=== PATIENT | female | born 1970 | race Caucasian/White ===

== ENCOUNTER 2023-11-01 19:28 | Inpatient (IN) | payer OTHER, SELFPAY ==
[2023-11-01 19:32] VITALS: BP 174/94; PULSE 91; RESP 20; TEMP 37.2; O2SAT 99; BMI 38.6
--- NOTE | 2023-11-01 19:32 | ED_ITS ---
HPI - Psych General Chief Complaint: Psychiatric Symptoms Stated Complaint: SI Time Seen by Provider: 11/01/23 19:45 Source: patient Mode of arrival: ambulatory Limitations: no limitations History of Present Illness ED Provider: Keira Coleman NP HPI Narrative: Patient is a 53-year-old female who presents to the emergency department with [id number] present. Patient endorsing suicidal ideations with a plan to overdose on medication that she has at home. She states that she has not taken her medication for depression/anxiety ?in a few months? she felt that they were not helping her. She was previously being followed by [facility], states she has not seen them since July of 2023 reporting ?I kind of vague up on them?. She reports lot of social stressors involving her housing instability, her parents have recently , and the house is being sold off by the bank, and as of later this week she is going to be homeless. She states that she is currently unemployed, and reports multiple reasons that she is unable to obtain a job, her unemployment has since run out and she currently only is receiving money for food stamps. She denies homicidal ideation, recreational drug usage, alcohol usage. She reports a history of chronic lower back pain, nonradiating to the extremities, no bladder bowel dysfunction, no saddle paresthesias, no symptoms, no fevers or chills. She does admit to a remote history of hypertension, states a few years ago she was taking ?a low-dose blood pressure pill? with stop taking this, and she has not seen primary care doctor since 2019. Related Data Home Medications ?Medication ?Instructions ?Recorded ?Confirmed bupropion HCl 300 mg 24 hr tablet, 300 mg PO QAM 11/01/23 11/01/23 extended release clonidine HCl 0.1 mg tablet 0.1 mg PO BID PRN anxiety 11/01/23 11/01/23 fluvoxamine 50 mg tablet 50 mg PO BEDTIME 11/01/23 11/01/23 quetiapine 25 mg tablet 25 mg PO BEDTIME 11/01/23 11/01/23 Allergies Allergy/AdvReac Type Severity Reaction Status Date / Time ibuprofen [From Advil] AdvReac Hives Verified 11/01/23 19:36 Review of Systems 2 Review of Systems: Yes all other systems are reviewed and are negative PMFSH Past Medical History Attestation statement: The following information was validated with the patient. Source: old records reviewed Social History Social History Advance Directives: No Advance Directives Information Provided: No Do you have a plan to hurt others: Specific Physical Exam 2 Vital Signs: Vital Signs: Last Vital Signs Temp 97.4 F 11/02/23 11:51 Pulse 66 11/02/23 11:51 Resp 15 11/02/23 11:51 BP 217/82 H 11/02/23 11:58 Pulse Ox 100 11/02/23 11:51 O2 Del Method Room Air 11/02/23 11:51 BMI result Body Mass Index 38.6 Appearance: Alert.?Oriented to person, place and time. No acute distress.?Normal affect. Eyes: Pupils equal, round and reactive to light.? ENT: Pharynx normal.?? Neck: Normal inspection.? Neck supple.?? CVS: Heart sounds normal. Normal heart rate and rhythm.? Pulses normal.?? Respiratory: No respiratory distress.? Lung sounds clear to auscultation bilaterally?? Abdomen: Soft and non-tender. Normoactive bowel sounds. No pulsatile mass.?? Skin: Skin warm and dry.? Normal skin color.? ?? Extremities: No lower extremity edema.? No calf ttp? Back: diffuse mild paraspinal muscular tenderness from lumbar region to coccyx bilaterally. No CVA tenderness. No midline spinal tenderness, step-off's, or deformity. Full ROM intact in bilateral lower extremities. Straight leg test negative on right; Straight leg test negative on left. No rashes, lesions, areas of induration or fluctuance, or signs of infection noted., Neuro: Moves all extremities spontaneously. Sensation intact bilaterally. CN II- XII intact. No focal neuro deficits. Ambulates with normal steady gait. Course Course Course Narrative: This is a Rapid Medical Examination (RME) performed by Marisol Huynh PA-C in triage. Full HPI, ROS, assessment and treatment plan per primary provider in the Main ED. 53 yo female hx of anxiety, depression, presents to the ED today with sister in law for eval of suicidal ideation. reports plan to OD and has access to medications at home. per med history, patient takes buproprion, clonidine, and quetiapine. sister in law states patient's father a year ago. they are in the process of selling his house, which patient lives in, and the sale is closing this week. once this is sold, she will have nowhere to live. sister in law states her and her were outside the ouse earlier today and upon entry into the house, patient threatened to kill herself 3 times. PD was called to scene. patient does not currently have a job/money. patient reports physical concerns of chronic back pain. atraumatic. Plan: medical clearance, care team eval Medications Administered Generic Name Dose Route Start Last Admin Trade Name Freq PRN Reason Stop Dose Admin Bupropion HCl 300 mg 11/02/23 08:30 11/02/23 09:03 Bupropion Hcl Xl 300 Mg Tab.Er.24h PO 300 mg DAILY ALTHEA Administration Clonidine HCl 0.1 mg 11/02/23 08:16 11/02/23 11:58 Clonidine Hcl 0.1 Mg Tablet PO 0.1 mg BID PRN Administration anxiety Protocol Discontinued Medications Generic Name Dose Route Start Last Admin Trade Name Freq PRN Reason Stop Dose Admin Acetaminophen 975 mg 11/02/23 06:20 11/02/23 06:30 Acetaminophen 325 Mg Tablet PO 11/02/23 06:21 975 mg ONCE ONE Administration Al Hydroxide/Mg Hydroxide 30 ml 11/02/23 00:42 11/02/23 00:59 Magnesium Hydrox/Alum Hydrox 30 Ml Oral.Susp PO 11/02/23 00:43 30 ml ONCE ONE Administration Calcium Carbonate 1,500 mg 11/02/23 10:19 11/02/23 10:26 Calcium Carbonate 750 Mg Tab.Chew PO 11/02/23 10:20 1,500 mg ONCE ONE Administration Diphenhydramine HCl 50 mg 11/02/23 00:35 11/02/23 00:59 Diphenhydramine Hcl 25 Mg Capsule PO 11/02/23 00:36 50 mg ONCE ONE Administration Medical Decision Making Medical Decision Making MDM Narrative: Patient is a 53-year-old female with past medical history of depression, anxiety, hypertension, chronic lower back pain presenting to emergency department for evaluation of suicidal ideations as per HPI. She is endorsing chronic lower back pain for which she typically takes acetaminophen/ibuprofen at home, no acute changes to this pain, has no focal neurological deficits, or exam findings concerning for cauda equina syndrome. Serum labs were obtained, CBC is without leukocytosis anemia or thrombocytopenia. No electrolyte derangement. No RONI. Urinalysis without evidence of infection. Toxicology testing is negative. At this time feel that she is cleared for evaluation by care team and determination as to whether inpatient psychiatric services are required. 11/02/2023, 06:52 hours, Dr. Gandhi's note Physician observation continued: The patient has been in the emergency department for 11 hours and 24 minutes. She presented with suicidal ideation. Patient has stressful social situation, her father or in her house is being sold and she is going to be homeless. Patient has stopped taking medications 08/2023 and he has been combative, not herself according to her [id number]. Patient made multiple suicidal statements to her [id number]-sfg. There were no reported incidents on the patient by the overnight staff. The patient has been evaluated by the care team and is in in-patient bed search. Patient will remain in the emergency department Behavioral Health Unit until disposition can be determined or until patient's symptoms improve over time. 13:07 End physician observation on 11/02/2023 at 13:07 hours: Observation care revealed the the patient [does or does not] meet medical necessity for hospitalization. Exam at time of disposition revealed the patient was awake, alert , oriented to person place, was not in any distress. ? Final disposition discussed with the patient [and the patient's] who verbalized understanding and agreement. Patient started observation time on (date) (time) Patient completed observation care on (date) (time) Total time spent in observation care was [X] hours and [X] minutes. [email or web address] Differential Diagnosis Differential Diagnoses: The differential diagnosis associated with the presentation includes (Suicidal ideations, depression, anxiety, lumbago) Admission/Observation Consideration of admission/observation: Escalation of care including admission/observation considered (See narrative above) Consult Healthcare Provider Management of the patient was discussed with: Behavioral Health Provider Patient was evaluated by care team, placed on a section 12 for inpatient bed search. No respiratory distress. Speaking clear full sentences. Calm and cooperative. Lab Data MDM Lab Attestation statement: I reviewed the patient's lab results. (See narrative above) 11/01/23 20:11 11/01/23 20:11 Labs: Lab Results 06/11/24 06/11/24 06/11/24 Range/Units 20:10 20:11 20:12 WBC 10.2 (4.8-10.8) X10*3/uL RBC 4.57 (4.20-5.50) X10*6/uL Hgb 12.3 (12.0-16.0) g/dl Hct 38.1 (37.0-47.0) % MCV 83.4 (80.0-98.0) fL MCH 26.9 L (27.0-33.0) pg MCHC 32.3 (31.0-35.0) g/dl RDW 14.6 (11.0-16.0) % Plt Count 341 (160-400) X10*3/uL MPV 10.0 (9.4-12.3) fL Immature Gran % (Auto) 0.3 (0.0-0.4) % Neut % (Auto) 71.9 (45-73) % Lymph % (Auto) 16.0 L (20-40) % [place] % (Auto) 7.6 (2-11) % Eos % (Auto) 3.4 (0-4) % Baso % (Auto) 0.8 (0-2) % Lymph # (Auto) 1.6 (1.2-4.9) X10*3/uL [place] # (Auto) 0.8 (0.1-1.2) X10*3/uL Eos # (Auto) 0.4 (0.0-0.4) X10*3/uL Baso # (Auto) 0.1 (0.0-0.2) X10*3/uL Abs Immat Gran (auto) 0.03 (0.00-0.03) X10*3/uL Absolute Neuts (auto) 7.3 (2.0-8.3) x10*3/uL Absolute Nucleated RBC 0.000 (0.0-0.012) X10*3/uL Nucleated RBC % (auto) 0.0 (0.0-0.2) /100WBC Sodium 143 (135-145) mmol/L Potassium 3.4 (3.3-5.1) mmol/L Chloride 105 (96-108) mmol/L Carbon Dioxide 27 (22-29) mmol/L Anion Gap 14 (12-20) BUN 8 L (9-16) mg/dL Creatinine 0.64 (0.5-1.4) mg/dL Estim Creat Clear Calc 120.9 Estimated GFR > 60 Random Glucose 97 (60-115) mg/dL Calcium 9.5 (8.4-10.2) mg/dL Magnesium 2.2 (1.6-2.6) mg/dL Total Bilirubin 0.3 (0.0-1.0) mg/dL AST 16 (5-31) U/L ALT 11 (0-31) U/L Alkaline Phosphatase 72 (39-117) U/L Total Protein 7.9 (6.5-8.0) g/dL Albumin 4.6 (3.5-5.0) g/dL Lipase 26 (8-78) U/L Urine Color Yellow Urine Appearance Clear Urine pH 7.0 (5.0-9.0) Ur Specific [place] <= 1.005 (1.005-1.025) Urine Protein Negative (Neg-Trace) mg/dL Urine Glucose (UA) Negative (Negative) mg/dL Urine Ketones Negative (Negative) mg/dL Urine Blood Trace H (Negative) Urine Nitrite Negative (Negative) Ur Leukocyte Esterase Negative (Negative) Urine RBC 0-2 (0-2) /HPF Urine WBC 0-5 (0-5) /HPF Ur Squamous Epith Cells 0-2 (0-2) /HPF Urine Bacteria None Seen (None Seen) Hyaline Casts 0-2 (0-2) /LPF Salicylates < 5.0 L (15-30) mg/dL Urine Opiates Screen Not Detected (Not Detect) Ur Buprenorphine Scrn Not Detected (Not Detect) ng/mL Ur Oxycodone Screen Not Detected (Not Detect) ng/mL Urine Methadone Screen Not Detected (Not Detect) ng/mL Urine Fentanyl Screen Not Detected (Not Detect) Ur Barbiturates Screen Not Detected (Not Detect) Ur Phencyclidine Scrn Not Detected (Not Detect) Ur Amphetamines Screen Not Detected (Not Detect) U Benzodiazepines Scrn Not Detected (Not Detect) Urine Cocaine Screen Not Detected (Not Detect) U Marijuana (THC) Screen Not Detected (Not Detect) Ethyl Alcohol < 10 mg/dL Independent Historian Clinical information obtained from an independent historian. History obtained from or confirmed by: Other ([id number]) Discharge Plan Discharge Clinical Impression: Suicidal ideation Patient Disposition: Still a Patient Prescriptions: No Action quetiapine 25 mg tablet 25 mg PO BEDTIME clonidine HCl 0.1 mg tablet 0.1 mg PO BID PRN (Reason: anxiety) fluvoxamine 50 mg tablet 50 mg PO BEDTIME bupropion HCl 300 mg tablet extended release 24 hr 300 mg PO QAM Interventions: Angelina-Suicide Risk Severity Scale Last Done: 11/02/23 02:38 Print Language: Slovenian
[2023-11-01 20:18] LABS: MANUAL DIFF FLAG NO
[2023-11-01 20:19] LABS: Basophils Absolute Auto 0.1 X10*3/uL (0.0-0.2); Basophils Percent Auto 0.8 % (0-2); Eosinophils Absolute Auto 0.4 X10*3/uL (0.0-0.4); Eosinophils Percent Auto 3.4 % (0-4); Hematocrit 38.1 % (37.0-47.0); Hemoglobin 12.3 g/dl (12.0-16.0); Imm Gran Abs Auto 0.03 X10*3/uL (0.00-0.03); Imm Gran Pct Auto 0.3 % (0.0-0.4); Lymphocytes Absolute Auto 1.6 X10*3/uL (1.2-4.9); Mean Corpuscular HGB Conc 32.3 g/dl (31.0-35.0); Mean Corpuscular Hemoglobin 26.9 pg (27.0-33.0); Mean Corpuscular Volume 83.4 fL (80.0-98.0); Monocytes Absolute Auto 0.8 X10*3/uL (0.1-1.2); Monocytes Percent Auto 7.6 % (2-11); Neutrophils Absolute Auto 7.3 x10*3/uL (2.0-8.3); Neutrophils Percent Auto 71.9 % (45-73); Platelet Count 341 X10*3/uL (160-400); Red Blood Count 4.57 X10*6/uL (4.20-5.50); Red Cell Distribution Width 14.6 % (11.0-16.0); White Blood Count 10.2 X10*3/uL (4.8-10.8)
[2023-11-01 20:22] LABS: Appearance Urine Clear; Color Urine Yellow; Glucose Urine UA Negative (Negative); Leukocyte Esterase Urine Negative (Negative); Nitrite Urine Negative (Negative); Specific Gravity - Urine <= 1.005 (1.005-1.025); UMIC TRIGGER UACC YES; Urine Blood Trace (Negative); Urine Ketones Negative (Negative); Urine Protein Negative (Neg-Trace)
[2023-11-01 20:27] LABS: Bacteria Urine None Seen (None Seen); Hyaline Casts Urine 0-2 /LPF (0-2); RBC Urine 0-2 /HPF (0-2); Squamous Epithelial Cell Urine 0-2 /HPF (0-2); WBC Urine 0-5 /HPF (0-5)
[2023-11-01 20:30] LABS: Amphetamine Screen Urine Not Detected (Not Detect); Barbiturates, Urine Not Detected (Not Detect); Benzodiazepines Screen Urine Not Detected (Not Detect); Buprenorphine Scr Not Detected (Not Detect); Cannabinoid Screen Urine Not Detected (Not Detect); Cocaine Screen Urine Not Detected (Not Detect); Fentanyl, urine Not Detected (Not Detect); Methadone Screen, Urine Not Detected (Not Detect); Opiate Screen Urine Not Detected (Not Detect); Oxycodone Screen Urine Not Detected (Not Detect); Phencyclidine Screen Urine Not Detected (Not Detect)
[2023-11-01 20:34] LABS: Ethanol < 10 mg/dL
[2023-11-01 20:41] LABS: Salicylate < 5.0 mg/dL (15-30)
[2023-11-01 21:01] LABS: Alanine Aminotransferase 11 U/L (0-31); Albumin Level 4.6 g/dL (3.5-5.0); Alkaline Phosphatase 72 U/L (39-117); Anion Gap 14 (12-20); Aspartate Amino Transferase 16 U/L (5-31); Bilirubin Total 0.3 mg/dL (0.0-1.0); Blood Urea Nitrogen 8 mg/dL (9-16); Calcium 9.5 mg/dL (8.4-10.2); Carbon Dioxide 27 mmol/L (22-29); Chloride 105 mmol/L (96-108); Creatinine Clr Calc Pharmacy 120.9; Estimated Glomerular Filt Rate > 60; Glucose Random 97 mg/dL (60-115); Lipase 26 U/L (8-78); Magnesium 2.2 mg/dL (1.6-2.6); Potassium 3.4 mmol/L (3.3-5.1); Sodium 143 mmol/L (135-145); Total Protein 7.9 g/dL (6.5-8.0)
[2023-11-02] MEDS: diphenhydrAMINE HCL 25 MG CAPSULE 50 MG PO (00:59)
[2023-11-02] MEDS: Magnesium Hydrox/Alum Hydrox 30 ML ORAL.SUSP PO ×2 (00:59→20:07)
[2023-11-02 06:27] VITALS: BP 195/93; PULSE 65; TEMP 36.2; O2SAT 98
[2023-11-02] MEDS: Acetaminophen 325 MG TABLET 975 MG PO (06:30)
--- NOTE | 2023-11-02 07:46 | ECG_ITS ---
Test Reason : PROLONG QT Blood Pressure : / mmHG Vent. Rate : 061 BPM Atrial Rate : 061 BPM P-R Int : 138 ms QRS Dur : 098 ms QT Int : 450 ms P-R-T Axes : 021 -05 024 degrees QTc Int : 453 ms Normal sinus rhythm Minimal voltage criteria for LVH, may be normal variant ( R in aVL ) Borderline ECG No previous ECGs available Referred By: Abhijit Gandhi Electronically Signed By:DOMINIQUE WARREN
[2023-11-02] MEDS: buPROPion HCl XL 300 MG TAB.ER.24H PO (09:03)
[2023-11-02] MEDS: Calcium Carbonate 750 MG TAB.CHEW 1500 MG PO (10:26)
[2023-11-02 11:51] VITALS: BP 217/82; PULSE 66; RESP 15; TEMP 36.3; O2SAT 100
[2023-11-02 11:58] VITALS: BP 217/82
[2023-11-02] MEDS: cloNIDine HCL 0.1 MG TABLET PO (11:58)
--- NOTE | 2023-11-02 12:26 | PC.NURSE ---
patient medicated w/ prn medication, watching tv in common area at this time offering no complaints
--- NOTE | 2023-11-02 13:21 | PHA.MEDREC ---
Pharmacy Consult ? Medication Reconciliation Pharmacy has completed the medication reconciliation. Reviewed med rec done by nursing
[2023-11-02 13:44] VITALS: BP 134/61
[2023-11-02 14:20] VITALS: BP 186/86; PULSE 86; RESP 16; TEMP 36.8; O2SAT 99; BMI 38.6
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
[2023-11-02 20:00] VITALS: BP 196/96; TEMP 36.5; O2SAT 99
[2023-11-02] MEDS: fluvoxaMINE Maleate 50 MG TABLET PO (20:03)
[2023-11-02] MEDS: QUEtiapine Fumarate 25 MG TABLET PO (20:03)
[2023-11-02] MEDS: Acetaminophen 325 MG TABLET 650 MG PO (20:11)
[2023-11-03 07:00] VITALS: BMI 38.7
[2023-11-03 08:00] VITALS: BP 171/82; PULSE 72; RESP 16; TEMP 36.4; O2SAT 97
[2023-11-03 08:30] LABS: Estimated Average Glucose 105 mg/dL; Hemoglobin A1c % 5.3 % (<6.0)
[2023-11-03 08:48] LABS: Cholesterol 216 mg/dL (<200); HDL Cholesterol 59 mg/dL (>40); LDL Cholesterol Calculated 138 mg/dL (<100); Magnesium 2.1 mg/dL (1.6-2.6); Triglycerides 96 mg/dL (<150)
[2023-11-03 09:03] LABS: Free T4 (Free Thyroxine) 0.99 ng/dL (0.71-1.85)
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
[2023-11-03 09:16] LABS: Folate 8.6 ng/mL (> or = 4.0); Vitamin B12 474 pg/mL (200-900)
[2023-11-03] MEDS: buPROPion HCl XL 300 MG TAB.ER.24H PO (09:38)
[2023-11-03] MEDS: hydrOXYzine HCL 25 MG TABLET PO ×2 (09:38→20:57)
[2023-11-03] MEDS: lisinopriL 5 MG TABLET PO (15:28)
[2023-11-03] MEDS: Lidocaine 4 % Patch ADH..PATCH 1 PATCH TRANSDERMA (15:30)
[2023-11-03 20:00] VITALS: BP 186/73; PULSE 80; RESP 16; TEMP 36.3; O2SAT 99
[2023-11-03] MEDS: fluvoxaMINE Maleate 50 MG TABLET PO (20:57)
[2023-11-03] MEDS: Acetaminophen 325 MG TABLET 650 MG PO (21:00)
[2023-11-04 03:16] VITALS: BP 176/82
[2023-11-04] MEDS: cloNIDine HCL 0.1 MG TABLET PO ×2 (03:16→20:50)
[2023-11-04 08:00] VITALS: BP 119/68; PULSE 71; RESP 16; TEMP 36.6; O2SAT 98
[2023-11-04] MEDS: buPROPion HCl XL 300 MG TAB.ER.24H PO (09:00)
[2023-11-04] MEDS: lisinopriL 5 MG TABLET PO (09:40)
[2023-11-04] MEDS: Acetaminophen 325 MG TABLET 650 MG PO ×2 (09:41→20:53)
[2023-11-04] MEDS: hydrOXYzine HCL 25 MG TABLET PO ×2 (09:41→20:50)
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
[2023-11-04 13:30] VITALS: BP 145/79; PULSE 78; RESP 16; O2SAT 99
[2023-11-04 20:00] VITALS: BP 177/78; PULSE 73; RESP 18; TEMP 36.6; O2SAT 96
[2023-11-04 20:50] VITALS: BP 177/78
[2023-11-04] MEDS: traZODone HCL 50 MG TABLET PO (20:50)
[2023-11-04] MEDS: fluvoxaMINE Maleate 50 MG TABLET PO (20:50)
[2023-11-04] MEDS: Lidocaine 4 % Patch ADH..PATCH 1 PATCH TRANSDERMA (22:45)
[2023-11-05 08:00] VITALS: BP 108/58; PULSE 64; RESP 18; TEMP 36.9; O2SAT 95
[2023-11-05 08:09] VITALS: BP 108/58
[2023-11-05] MEDS: buPROPion HCl XL 300 MG TAB.ER.24H PO (08:09)
[2023-11-05] MEDS: lisinopriL 5 MG TABLET PO (08:09)
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
[2023-11-05] MEDS: Acetaminophen 325 MG TABLET 650 MG PO ×2 (10:58→22:45)
[2023-11-05 13:30] VITALS: BP 101/58; PULSE 68
[2023-11-05 20:00] VITALS: BP 144/76; PULSE 82; RESP 18; TEMP 36.6; O2SAT 99
[2023-11-05] MEDS: hydrOXYzine HCL 25 MG TABLET PO (20:49)
[2023-11-05] MEDS: cloNIDine HCL 0.1 MG TABLET PO (20:49)
[2023-11-05] MEDS: fluvoxaMINE Maleate 50 MG TABLET PO (20:50)
[2023-11-05] MEDS: traZODone HCL 50 MG TABLET PO (20:50)
[2023-11-05] MEDS: Lidocaine 4 % Patch ADH..PATCH 1 PATCH TRANSDERMA (22:46)
[2023-11-06 08:00] VITALS: BP 114/59; PULSE 74; RESP 16; TEMP 36.7; O2SAT 95
[2023-11-06] MEDS: buPROPion HCl XL 300 MG TAB.ER.24H PO (08:32)
[2023-11-06] MEDS: lisinopriL 5 MG TABLET PO (08:32)
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
[2023-11-06] MEDS: Dextroamphetamine/Amphetamine XR 10 MG CAP.ER.24H PO (10:54)
[2023-11-06 13:30] VITALS: BP 137/61; PULSE 64; RESP 16; TEMP 36.4; O2SAT 97
[2023-11-06 20:00] VITALS: BP 161/76; PULSE 70; TEMP 36.4; O2SAT 100
[2023-11-06] MEDS: traZODone HCL 50 MG TABLET PO (21:23)
[2023-11-06] MEDS: fluvoxaMINE Maleate 50 MG TABLET PO (21:24)
[2023-11-06] MEDS: Acetaminophen 325 MG TABLET 650 MG PO (21:27)
[2023-11-07 08:00] VITALS: BP 132/84; PULSE 80; RESP 16; TEMP 36.5; O2SAT 97
[2023-11-07] MEDS: hydrOXYzine HCL 25 MG TABLET PO (08:54)
[2023-11-07] MEDS: Dextroamphetamine/Amphetamine XR 10 MG CAP.ER.24H 20 MG PO (08:54)
[2023-11-07] MEDS: cloNIDine HCL 0.1 MG TABLET PO (08:54)
[2023-11-07] MEDS: buPROPion HCl XL 300 MG TAB.ER.24H PO (08:54)
[2023-11-07] MEDS: lisinopriL 5 MG TABLET PO (08:54)
--- NOTE | 2023-11-07 09:51 | P.PNPSI_ITS ---
Subjective Subjective Date of Service: 11/07/23 Reason For Visit: Depression, si Interim History: met with patient; discussed with team still depressed with intermittent SI; feels strong need to talk about hx of trauma in order to process and will sometimes give unrelated answers to questions asked, talking about past events. Regarding Adderall, maybe it's helped her focus more but she does not really think so Mental Status Exam Mental Status Exam Narrative: Pt is alert and oriented; behavior is cooperative, friendly and calm; patient is not in distress; dressed in casual attire, well groomed; mood is described as okay and affect congruent, still a little down; eye contact appropriate; Speech is verbose; normal rate, volume and prosody; not pressured; no psychomotor retardation present; thought process is goal directed but concrete; also quite circumstantial; Thought content is on psychosocial stressors, homelessness; otherwise pertinent to relevant topics and without any delusional content, paranoid ideations or grandiosity; SI in context of homelessness; no HI; There is no evidence of perceptual disturbance. Patients insight and judgment improving Diagnostics Vital Signs (24Hr): Vital Signs - 24 hr 11/06/23 13:30 11/06/23 20:00 11/07/23 08:00 Temperature 97.6 F 97.5 F 97.7 F Pulse Rate 64 70 80 Respiratory Rate 16 16 Blood Pressure 137/61 161/76 H 132/84 Pulse Oximetry 97 100 97 Oxygen Delivery Method Room Air Room Air Room Air BMI result Body Mass Index 38.7 Labs 11/01/23 20:11 11/01/23 20:11 Medications Medications Current Medications Acetaminophen (Acetaminophen 325 Mg Tablet) 650 mg PO Q6H PRN PRN Reason: Headache/Pain Mild Scale (1-3) Last Admin: 11/06/23 21:27 Dose: 650 mg Al Hydroxide/Mg Hydroxide (Magnesium Hydrox/Alum Hydrox 30 Ml Oral.Susp) 30 ml PO Q6H PRN PRN Reason: Heartburn/Nausea Last Admin: 11/02/23 20:07 Dose: 30 ml Amphetamine/Dextroamphetamine (Dextroamphetamine/Amphetamine Xr 10 Mg Cap.Er.24h) 20 mg PO DAILY ALTHEA Last Admin: 11/07/23 08:54 Dose: 20 mg Bupropion HCl (Bupropion Hcl Xl 300 Mg Tab.Er.24h) 300 mg PO DAILY ALTHEA Last Admin: 11/07/23 08:54 Dose: 300 mg Clonidine HCl (Clonidine Hcl 0.1 Mg Tablet) 0.1 mg PO BID PRN; Protocol PRN Reason: anxiety Last Admin: 11/07/23 08:54 Dose: 0.1 mg Fluvoxamine Maleate (Fluvoxamine Maleate 50 Mg Tablet) 50 mg PO BEDTIME [facility] Last Admin: 11/06/23 21:24 Dose: 50 mg Hydroxyzine HCl (Hydroxyzine Hcl 25 Mg Tablet) 25 mg PO Q6H PRN PRN Reason: Anxiety Last Admin: 11/07/23 08:54 Dose: 25 mg Lidocaine (Lidocaine 4 % Patch Adh..Patch) 1 patch TRANSDERMA DAILY PRN; Protocol PRN Reason: lower back pain Last Admin: 11/05/23 22:46 Dose: 1 patch Lisinopril (Lisinopril 5 Mg Tablet) 5 mg PO DAILY [facility]; Protocol Last Admin: 11/07/23 08:54 Dose: 5 mg Magnesium Hydroxide (Milk Of Magnesia 30 Ml Oral.Susp) 30 ml PO DAILY PRN PRN Reason: Constipation Patient Own (Probiotic) 1 each PO DAILY [facility] Last Admin: 11/06/23 08:31 Dose: 1 each Tetrahydrozoline HCl (Tetrahydrozoline Hcl 0.05% Oph 15 Ml Drpbtl) 1 drop EYE- BOTH QID PRN PRN Reason: dry eyes Trazodone HCl (Trazodone Hcl 50 Mg Tablet) 50 mg PO BEDTIME MRX1 PRN PRN Reason: Insomnia Trazodone HCl (Trazodone Hcl 50 Mg Tablet) 50 mg PO BEDTIME [facility] Last Admin: 11/06/23 21:23 Dose: 50 mg Allergies Allergies Allergy/AdvReac Type Severity Reaction Status Date / Time ibuprofen [From Advil] AdvReac Hives Verified 11/01/23 19:36 Assessment & Plan Assessment & Plan (1) MDD (major depressive disorder), recurrent severe, without psychosis: Status: Acute Code(s): F33.2 - Major depressive disorder, recurrent severe without psychotic features (2) Hoarding behavior: Status: Acute Code(s): F42.3 - Hoarding disorder (3) Compulsive shopping: Status: Acute Code(s): F42.8 - Other obsessive-compulsive disorder Plan pt is a 53 yo female with hx of hypertension, depression, shopping addiction, hoarding who presents for depression and SI with plan to overdose on medications in face of becoming homeless. Patient reports that she has had intermittent bouts of depression throughout most of her life. Patient reports that she was 1st started on medications about a year ago but only took them for several months and though they helped with her shopping addiction, did not do that much for depression. She has been off them since July. Her depression has worsened over the past several weeks as she will soon become homeless as her father's estate was pilfered by patient's stepmother. This past week patient started feeling hopeless developed suicidal ideation; the last few days she started have a plan to overdose. Patient actually got her pills out but her brother and [id number] came over and when she told him of her SI, they called crisis. Patient denies history of manic behaviors or episodes; denies AVH, denies alcohol or drug use. Patient has some history of trauma being verbally abused by her parents and bullied. Hospital course: 11/03 pt remains depressed; some SI but says less so. Sad today since sale of the house she's been living in all her life finalized today and now homeless. Pt reports trouble sleeping and agrees to try trazodone. -at this time, it does not seem that patient will be able to navigate much on her own, let alone homelessness. 11/04 Remains depressed but suicidality seems to have mostly resolved. Patient anxious about what will happened or post discharge given her new status of being homeless. Product Marketing Coordinator discussed history of school and turns outpatient was held back in the 1st grade and then again in the 5th grade; from the discussion it seems she took modified classes however she appears to be unaware of this. Screen for ADHD and patient endorses symptoms of ADD including trouble focusing, trouble maintaining attention, starting projects, getting distracted and then starting a different project never finishing any of them; losing things repeatedly. Does not seem to have had history of hyperactivity. Patient said it was hard to graduate; never went on to school after high school, lived at home with her parents all her life. Discussed possible trial of Adderall, including risks/side effects and patient agrees to try it. -sign writer letterer or painter wonders if there is possibly a learning disability and or an intellectual disability; not sure if stimulant medication can help with any of this but patient expresses much frustration with being able to complete tasks at home and she is about to be fully responsible for navigating homelessness, finding herself in apartment and doing many things herself she has never had to do before. If stimulant medication can help her, it is sign writer letterer or painter's opinion it has worth a try. Stimulant medication is also an adjunct for antidepressants. No history of drug abuse whatsoever. 11/05 a little brighter, still depressed but no SI; did not notice Adderall and agrees to increase dose -chronic lower back pain seems to be bothering her 11/06 remains depressed; SI when thinking about homelessness; will likely increase Adderall. -pt has no skills for homeless and sign writer letterer or painter is concerned she has an intellectual disability that's never been acknowledged/addressed. Family not symptathetic. Plan: CV Q 15 minute checks Continue Adderall XL 20 mg daily to see if helps with executive function Continue bupropion XL 300 mg daily; will consider increasing since has not help thus far much with depression Continue fluvoxamine 40 mg daily; will consider increasing for depression trazodone 50mg scheduled with prn available Patient educated on: diagnosis and medication risk/benefits Informed Consent: understands, does not understand and further education needed Reason for continued inpatient stay Substantial Risk for: rapid decompensation Time Spent With Patient Time: Total time managing care of this patient today ____ minutes.
[2023-11-07 13:30] VITALS: BP 128/78; PULSE 84; RESP 16; O2SAT 97
[2023-11-07 20:00] VITALS: BP 179/94; PULSE 92; TEMP 36.4; O2SAT 98
[2023-11-07] MEDS: Acetaminophen 325 MG TABLET 650 MG PO (21:11)
[2023-11-07] MEDS: traZODone HCL 50 MG TABLET PO (21:12)
[2023-11-07] MEDS: fluvoxaMINE Maleate 50 MG TABLET PO (21:12)
[2023-11-07 22:50] VITALS: BP 134/61; PULSE 75; TEMP 36.6
[2023-11-08 08:00] VITALS: BP 130/64; PULSE 74; RESP 16; TEMP 36.6; O2SAT 95
[2023-11-08] MEDS: Dextroamphetamine/Amphetamine XR 10 MG CAP.ER.24H 20 MG PO (09:00)
[2023-11-08] MEDS: lisinopriL 5 MG TABLET PO (09:01)
[2023-11-08] MEDS: hydrOXYzine HCL 25 MG TABLET PO (09:01)
[2023-11-08] MEDS: buPROPion HCl XL 300 MG TAB.ER.24H PO (09:01)
--- NOTE | 2023-11-08 09:56 | P.PNPSI_ITS ---
Subjective Subjective Date of Service: 11/08/23 Reason For Visit: Depression, si Interim History: Met with patient; discussed with team; met with patient's [id number] Joaquina Patient remains depressed, but no SI. Not benefiting from Adderall and agrees to increase it. Also agrees to increase fluvoxamine for continued depression and anxiety. Patient is very anxious about being homeless and proposal lead writer and social scientist helped patient navigate some plans going forward Discussed patient's history with her [id number] Joaquina who is known her for about 30 years. Joaquina says that 2 of her own family members have a history of mental illness and intellectual disability and she knew right away, even as a teenager that Margaret struggled with an intellectual disability. Joaquina says that throughout her life, Margaret has struggled to comprehend.. Things. Has a hard time... Very slow... Does not have many skills... She said that patient has had numerous, menial jobs almost all of which she was fired from for not being able to understand how to do the job. Joaquina said that she would tried to explain this to patient's mother but that her parents were very selfish, would not address patient's intellectual disability and did nothing to prepare her for life or for when they . She reports that friend knew the house was going to be sold for about a year but just could not organize herself enough to make any plans; Margaret tried to help her fill out [employer], SSRI and food stamps and found the paperwork only partially completed, numerous things left out or incorrect which was not surprising; she says if she did not fill out the food stamp form for her it would never have been filled. She concurs that patient has significant hoarding problem; also struggles interpersonally and can get inappropriately attached to other people, wanting to date the sheet rock hanger investigating the serial con artist that took their father's money. Joaquina says that patient has regressed coping skills and when upset might yell and run into the room and slam the door. She agrees that patient has no skills at all to navigate homelessness and would be very vulnerable in most shelters. She thinks that patient's extended family has limitations in understanding Margaret's limitations. Mental Status Exam Mental Status Exam Narrative: Pt is alert and oriented; behavior is cooperative, friendly and calm; patient is not in distress; dressed in casual attire, well groomed; mood is described as okay and affect congruent, still a little down; eye contact appropriate; Speech is verbose; normal rate, volume and prosody; not pressured; no psychomotor retardation present; thought process is goal directed but concrete; also quite circumstantial; Thought content is on psychosocial stressors, homelessness; otherwise pertinent to relevant topics and without any delusional content, paranoid ideations or grandiosity; SI in context of homelessness; no HI; There is no evidence of perceptual disturbance. Patients insight and judgment improving Diagnostics Vital Signs (24Hr): Vital Signs - 24 hr 11/07/23 13:30 11/07/23 20:00 11/07/23 22:50 Temperature 97.6 F 97.8 F Pulse Rate 84 92 75 Respiratory Rate 16 Blood Pressure 128/78 179/94 H 134/61 Pulse Oximetry 97 98 Oxygen Delivery Method Room Air Room Air 11/08/23 08:00 Temperature 97.8 F Pulse Rate 74 Respiratory Rate 16 Blood Pressure 130/64 Pulse Oximetry 95 Oxygen Delivery Method Room Air BMI result Body Mass Index 38.7 Labs 11/01/23 20:11 11/01/23 20:11 Medications Medications Current Medications Acetaminophen (Acetaminophen 325 Mg Tablet) 650 mg PO Q6H PRN PRN Reason: Headache/Pain Mild Scale (1-3) Last Admin: 11/07/23 21:11 Dose: 650 mg Al Hydroxide/Mg Hydroxide (Magnesium Hydrox/Alum Hydrox 30 Ml Oral.Susp) 30 ml PO Q6H PRN PRN Reason: Heartburn/Nausea Last Admin: 11/02/23 20:07 Dose: 30 ml Amphetamine/Dextroamphetamine (Dextroamphetamine/Amphetamine Xr 10 Mg Cap.Er.24h) 20 mg PO DAILY ALTHEA Last Admin: 11/08/23 09:00 Dose: 20 mg Bupropion HCl (Bupropion Hcl Xl 300 Mg Tab.Er.24h) 300 mg PO DAILY ALTHEA Last Admin: 11/08/23 09:01 Dose: 300 mg Clonidine HCl (Clonidine Hcl 0.1 Mg Tablet) 0.1 mg PO BID PRN; Protocol PRN Reason: anxiety Last Admin: 11/07/23 08:54 Dose: 0.1 mg Fluvoxamine Maleate (Fluvoxamine Maleate 50 Mg Tablet) 50 mg PO BEDTIME ALTHEA Last Admin: 11/07/23 21:12 Dose: 50 mg Hydroxyzine HCl (Hydroxyzine Hcl 25 Mg Tablet) 25 mg PO Q6H PRN PRN Reason: Anxiety Last Admin: 11/08/23 09:01 Dose: 25 mg Lidocaine (Lidocaine 4 % Patch Adh..Patch) 1 patch TRANSDERMA DAILY PRN; Protocol PRN Reason: lower back pain Last Admin: 11/05/23 22:46 Dose: 1 patch Lisinopril (Lisinopril 5 Mg Tablet) 5 mg PO DAILY ALTHEA; Protocol Last Admin: 11/08/23 09:01 Dose: 5 mg Magnesium Hydroxide (Milk Of Magnesia 30 Ml Oral.Susp) 30 ml PO DAILY PRN PRN Reason: Constipation Patient Own (Probiotic) 1 each PO DAILY ALTHEA Last Admin: 11/08/23 09:01 Dose: 1 each Tetrahydrozoline HCl (Tetrahydrozoline Hcl 0.05% Oph 15 Ml Drpbtl) 1 drop EYE- BOTH QID PRN PRN Reason: dry eyes Trazodone HCl (Trazodone Hcl 50 Mg Tablet) 50 mg PO BEDTIME MRX1 PRN PRN Reason: Insomnia Trazodone HCl (Trazodone Hcl 50 Mg Tablet) 50 mg PO BEDTIME ALTHEA Last Admin: 11/07/23 21:12 Dose: 50 mg Allergies Allergies Allergy/AdvReac Type Severity Reaction Status Date / Time ibuprofen [From Advil] AdvReac Hives Verified 11/01/23 19:36 Assessment & Plan Assessment & Plan (1) MDD (major depressive disorder), recurrent severe, without psychosis: Status: Acute Code(s): F33.2 - Major depressive disorder, recurrent severe without psychotic features (2) Hoarding behavior: Status: Acute Code(s): F42.3 - Hoarding disorder (3) Compulsive shopping: Status: Acute Code(s): F42.8 - Other obsessive-compulsive disorder Plan pt is a 53 yo female with hx of hypertension, depression, shopping addiction, hoarding who presents for depression and SI with plan to overdose on medications in face of becoming homeless. Patient reports that she has had intermittent bouts of depression throughout most of her life. Patient reports that she was 1st started on medications about a year ago but only took them for several months and though they helped with her shopping addiction, did not do that much for depression. She has been off them since July. Her depression has worsened over the past several weeks as she will soon become homeless as her father's estate was pilfered by patient's stepmother. This past week patient started feeling hopeless developed suicidal ideation; the last few days she started have a plan to overdose. Patient actually got her pills out but her brother and [id number] came over and when she told him of her SI, they called crisis. Patient denies history of manic behaviors or episodes; denies AVH, denies alcohol or drug use. Patient has some history of trauma being verbally abused by her parents and bullied. Hospital course: 11/03 pt remains depressed; some SI but says less so. Sad today since sale of the house she's been living in all her life finalized today and now homeless. Pt reports trouble sleeping and agrees to try trazodone. -at this time, it does not seem that patient will be able to navigate much on her own, let alone homelessness. 11/04 Remains depressed but suicidality seems to have mostly resolved. Patient anxious about what will happened or post discharge given her new status of being homeless. House Director discussed history of school and turns outpatient was held back in the 1st grade and then again in the 5th grade; from the discussion it seems she took modified classes however she appears to be unaware of this. Screen for ADHD and patient endorses symptoms of ADD including trouble focusing, trouble maintaining attention, starting projects, getting distracted and then starting a different project never finishing any of them; losing things repeatedly. Does not seem to have had history of hyperactivity. Patient said it was hard to graduate; never went on to school after high school, lived at home with her parents all her life. Discussed possible trial of Adderall, including risks/side effects and patient agrees to try it. -proposal lead writer wonders if there is possibly a learning disability and or an intellectual disability; not sure if stimulant medication can help with any of this but patient expresses much frustration with being able to complete tasks at home and she is about to be fully responsible for navigating homelessness, finding herself in apartment and doing many things herself she has never had to do before. If stimulant medication can help her, it is proposal lead writer's opinion it has worth a try. Stimulant medication is also an adjunct for antidepressants. No history of drug abuse whatsoever. 11/05 a little brighter, still depressed but no SI; did not notice Adderall and agrees to increase dose -chronic lower back pain seems to be bothering her 11/06 remains depressed; SI when thinking about homelessness; will likely increase Adderall. -pt has no skills for homeless and proposal lead writer is concerned she has an intellectual disability that's never been acknowledged/addressed. Family not symptathetic. 11/07 Patient remains depressed, but no SI. Not benefiting from Adderall and agrees to increase it. Also agrees to increase fluvoxamine for continued depression and anxiety. Patient is very anxious about being homeless and proposal lead writer and social scientist helped patient navigate some plans going forward Discussed patient's history with her vaedit-ng-umn Joaquina who is known her for about 30 years and is the only family member that is empathetic towards patient's situation. Joaquina says that 2 of her own family members have a history of mental illness and intellectual disability and she knew right away, even as a teenager that Margaret struggled with an intellectual disability. Joaquina says that throughout her life, Margaret has struggled to comprehend.. Things. Has a hard time... Very slow... Does not have many skills... She said that patient has had numerous, menial jobs almost all of which she was fired from for not being able to understand how to do the job. Joaquina said that she would tried to explain this to patient's mother but that her parents were very selfish, would not address patient's intellectual disability and did nothing to prepare her for life or for when they . She reports that friend knew the house was going to be sold for about a year but just could not organize herself enough to make any plans; Margaret tried to help her fill out [employer], SS[employer] and food stamps and found the paperwork only partially completed, numerous things left out or incorrect which was not surprising; she says if she did not fill out the food stamp form for her it would never have been filled. She concurs that patient has significant hoarding problem; also struggles interpersonally and can get inappropriately attached to other people, wanting to date the sheet rock hanger investigating the sevenload artist that took their father's money. Joaquina says that patient has regressed coping skills and when upset might yell and run into the room and slam the door. She agrees that patient has no skills at all to navigate homelessness and would be very vulnerable in most shelters. She thinks that patient's extended family has limitations in understanding Margaret's limitations. Plan: CV Q 15 minute checks Increase to Adderall XL 30 mg daily to see if helps with executive function Continue bupropion XL 300 mg daily; will consider increasing since has not help thus far much with depression Increase to fluvoxamine 100 mg daily; for continued depression and anxiety trazodone 50mg scheduled with prn available Patient educated on: diagnosis, medication risk/benefits and therapeutic strategies Informed Consent: understands, does not understand and further education needed Reason for continued inpatient stay Substantial Risk for: inability to function and rapid decompensation Time Spent With Patient Time: Total time managing care of this patient today ____ minutes.
[2023-11-08 13:30] VITALS: BP 130/78; PULSE 100; RESP 16; O2SAT 98
[2023-11-08 20:00] VITALS: BP 170/94; PULSE 91; RESP 18; TEMP 36.4; O2SAT 100
[2023-11-08] MEDS: traZODone HCL 50 MG TABLET PO ×2 (21:15→23:19)
[2023-11-08] MEDS: Acetaminophen 325 MG TABLET 650 MG PO (21:15)
[2023-11-08] MEDS: fluvoxaMINE Maleate 50 MG TABLET 100 MG PO (21:19)
[2023-11-09 08:00] VITALS: BP 136/68; PULSE 73; RESP 16; TEMP 36.8; O2SAT 97
[2023-11-09] MEDS: Dextroamphetamine/Amphetamine XR 10 MG CAP.ER.24H 30 MG PO (09:24)
[2023-11-09] MEDS: buPROPion HCl XL 300 MG TAB.ER.24H PO (09:24)
[2023-11-09] MEDS: hydrOXYzine HCL 25 MG TABLET PO (09:24)
[2023-11-09] MEDS: lisinopriL 5 MG TABLET PO (09:26)
--- NOTE | 2023-11-09 15:05 | HO.PSYCHPN ---
Subjective Subjective Date of Service: 11/09/23 Reason For Visit: Depression, si Interim History: Met with patient; discussed with team Patient remains anxious, saying anxiety a little more today. Forensic Locksmith discussed this could possibly be due to Adderall. Patient denies any current benefit from Adderall but agrees to continue to see if this changes. Discussed learning disability which patient is aware of. She remains very worried about what will happen on discharge as she currently has no place to live. Forensic Locksmith met with patient's brother who reports that he is aware that patient has had an intellectual disability. He said that their parents did not help very much and that patient had a boyfriend at 1 point and another friend but the parents strongly discouraged these relationships because they wanted her at home to take care of them. He and his will try to provide support but she can not stay with them. Mental Status Exam Mental Status Exam Narrative: Pt is alert and oriented; behavior is cooperative, friendly and calm; patient is not in distress; dressed in casual attire, well groomed; mood is described as okay and affect congruent, still a little down; eye contact appropriate; Speech is verbose; normal rate, volume and prosody; not pressured; no psychomotor retardation present; thought process is goal directed but concrete; also quite circumstantial; Thought content is on psychosocial stressors, homelessness; otherwise pertinent to relevant topics and without any delusional content, paranoid ideations or grandiosity; SI in context of homelessness; no HI; There is no evidence of perceptual disturbance. Patients insight and judgment improving Diagnostics Vital Signs (24Hr): Vital Signs - 24 hr 11/08/23 20:00 11/09/23 08:00 Temperature 97.6 F 98.2 F Pulse Rate 91 73 Respiratory Rate 18 16 Blood Pressure 170/94 H 136/68 Pulse Oximetry 100 97 Oxygen Delivery Method Room Air Room Air BMI result Body Mass Index 38.7 Labs 11/01/23 20:11 11/01/23 20:11 Medications Medications Current Medications Acetaminophen (Acetaminophen 325 Mg Tablet) 650 mg PO Q6H PRN PRN Reason: Headache/Pain Mild Scale (1-3) Last Admin: 11/08/23 21:15 Dose: 650 mg Al Hydroxide/Mg Hydroxide (Magnesium Hydrox/Alum Hydrox 30 Ml Oral.Susp) 30 ml PO Q6H PRN PRN Reason: Heartburn/Nausea Last Admin: 11/02/23 20:07 Dose: 30 ml Amphetamine/Dextroamphetamine (Dextroamphetamine/Amphetamine Xr 10 Mg Cap.Er.24h) 30 mg PO DAILY [facility] Last Admin: 11/09/23 09:24 Dose: 30 mg Bupropion HCl (Bupropion Hcl Xl 300 Mg Tab.Er.24h) 300 mg PO DAILY ALTHEA Last Admin: 11/09/23 09:24 Dose: 300 mg Clonidine HCl (Clonidine Hcl 0.1 Mg Tablet) 0.1 mg PO BID PRN; Protocol PRN Reason: anxiety Last Admin: 11/07/23 08:54 Dose: 0.1 mg Fluvoxamine Maleate (Fluvoxamine Maleate 50 Mg Tablet) 100 mg PO BEDTIME ALTHEA Last Admin: 11/08/23 21:19 Dose: 100 mg Hydroxyzine HCl (Hydroxyzine Hcl 25 Mg Tablet) 25 mg PO Q6H PRN PRN Reason: Anxiety Last Admin: 11/09/23 09:24 Dose: 25 mg Lidocaine (Lidocaine 4 % Patch Adh..Patch) 1 patch TRANSDERMA DAILY PRN; Protocol PRN Reason: lower back pain Last Admin: 11/05/23 22:46 Dose: 1 patch Lisinopril (Lisinopril 5 Mg Tablet) 5 mg PO DAILY ALTHEA; Protocol Last Admin: 11/09/23 09:26 Dose: 5 mg Magnesium Hydroxide (Milk Of Magnesia 30 Ml Oral.Susp) 30 ml PO DAILY PRN PRN Reason: Constipation Patient Own (Probiotic) 1 each PO DAILY ALTHEA Last Admin: 11/09/23 09:29 Dose: 1 each Pt Own (Cetirizine Hydrochloride Tabs 10 Mg) 10 mg PO DAILY [facility] Last Admin: 11/09/23 09:28 Dose: 10 mg Tetrahydrozoline HCl (Tetrahydrozoline Hcl 0.05% Oph 15 Ml Drpbtl) 1 drop EYE-BOTH QID PRN PRN Reason: dry eyes Trazodone HCl (Trazodone Hcl 50 Mg Tablet) 50 mg PO BEDTIME MRX1 PRN PRN Reason: Insomnia Last Admin: 11/08/23 23:19 Dose: 50 mg Trazodone HCl (Trazodone Hcl 50 Mg Tablet) 50 mg PO BEDTIME ALTHEA Last Admin: 11/08/23 21:15 Dose: 50 mg Allergies Allergies Allergy/AdvReac Type Severity Reaction Status Date / Time ibuprofen [From Advil] AdvReac Hives Verified 11/01/23 19:36 Assessment & Plan Assessment & Plan (1) MDD (major depressive disorder), recurrent severe, without psychosis: Status: Acute Code(s): F33.2 - Major depressive disorder, recurrent severe without psychotic features (2) Hoarding behavior: Status: Acute Code(s): F42.3 - Hoarding disorder (3) Compulsive shopping: Status: Acute Code(s): F42.8 - Other obsessive-compulsive disorder Plan pt is a 53 yo female with hx of hypertension, depression, shopping addiction, hoarding who presents for depression and SI with plan to overdose on medications in face of becoming homeless. Patient reports that she has had intermittent bouts of depression throughout most of her life. Patient reports that she was 1st started on medications about a year ago but only took them for several months and though they helped with her shopping addiction, did not do that much for depression. She has been off them since July. Her depression has worsened over the past several weeks as she will soon become homeless as her father's estate was pilfered by patient's stepmother. This past week patient started feeling hopeless developed suicidal ideation; the last few days she started have a plan to overdose. Patient actually got her pills out but her brother and [id number] came over and when she told him of her SI, they called crisis. Patient denies history of manic behaviors or episodes; denies AVH, denies alcohol or drug use. Patient has some history of trauma being verbally abused by her parents and bullied. Hospital course: 11/03 pt remains depressed; some SI but says less so. Sad today since sale of the house she's been living in all her life finalized today and now homeless. Pt reports trouble sleeping and agrees to try trazodone. -at this time, it does not seem that patient will be able to navigate much on her own, let alone homelessness. 11/04 Remains depressed but suicidality seems to have mostly resolved. Patient anxious about what will happened or post discharge given her new status of being homeless. Forensic Locksmith discussed history of school and turns outpatient was held back in the 1st grade and then again in the 5th grade; from the discussion it seems she took modified classes however she appears to be unaware of this. Screen for ADHD and patient endorses symptoms of ADD including trouble focusing, trouble maintaining attention, starting projects, getting distracted and then starting a different project never finishing any of them; losing things repeatedly. Does not seem to have had history of hyperactivity. Patient said it was hard to graduate; never went on to school after high school, lived at home with her parents all her life. Discussed possible trial of Adderall, including risks/side effects and patient agrees to try it. -promotion writer wonders if there is possibly a learning disability and or an intellectual disability; not sure if stimulant medication can help with any of this but patient expresses much frustration with being able to complete tasks at home and she is about to be fully responsible for navigating homelessness, finding herself in apartment and doing many things herself she has never had to do before. If stimulant medication can help her, it is promotion writer's opinion it has worth a try. Stimulant medication is also an adjunct for antidepressants. No history of drug abuse whatsoever. 11/05 a little brighter, still depressed but no SI; did not notice Adderall and agrees to increase dose -chronic lower back pain seems to be bothering her 11/06 remains depressed; SI when thinking about homelessness; will likely increase Adderall. -pt has no skills for homeless and promotion writer is concerned she has an intellectual disability that's never been acknowledged/addressed. Family not symptathetic. 11/07 Patient remains depressed, but no SI. Not benefiting from Adderall and agrees to increase it. Also agrees to increase fluvoxamine for continued depression and anxiety. Patient is very anxious about being homeless and promotion writer and social sciences research scientist helped patient navigate some plans going forward Discussed patient's history with her [id number] Joaquina who is known her for about 30 years and is the only family member that is empathetic towards patient's situation. Joaquina says that 2 of her own family members have a history of mental illness and intellectual disability and she knew right away, even as a teenager that Margaret struggled with an intellectual disability. Joaquina says that throughout her life, Margaret has struggled to comprehend.. Things. Has a hard time... Very slow... Does not have many skills... She said that patient has had numerous, menial jobs almost all of which she was fired from for not being able to understand how to do the job. Joaquina said that she would tried to explain this to patient's mother but that her parents were very selfish, would not address patient's intellectual disability and did nothing to prepare her for life or for when they . She reports that friend knew the house was going to be sold for about a year but just could not organize herself enough to make any plans; Margaret tried to help her fill out [employer], [employer] and food stamps and found the paperwork only partially completed, numerous things left out or incorrect which was not surprising; she says if she did not fill out the food stamp form for her it would never have been filled. She concurs that patient has significant hoarding problem; also struggles interpersonally and can get inappropriately attached to other people, wanting to date the private detective investigating the serial con artist that took their father's money. Joaquina says that patient has regressed coping skills and when upset might yell and run into the room and slam the door. She agrees that patient has no skills at all to navigate homelessness and would be very vulnerable in most shelters. She thinks that patient's extended family has limitations in understanding Margaret's limitations. 11/08 Patient remains anxious, saying anxiety a little more today. Forensic Locksmith discussed this could possibly be due to Adderall. Patient denies any current benefit from Adderall but agrees to continue to see if this changes. Discussed learning disability which patient is aware of. She remains very worried about what will happen on discharge as she currently has no place to live. Forensic Locksmith met with patient's brother who reports that he is aware that patient has had an intellectual disability. He said that their parents did not help very much and that patient had a boyfriend at 1 point and another friend but the parents strongly discouraged these relationships because they wanted her at home to take care of them. He and his will try to provide support but she can not stay with them. Plan: CV Q 15 minute checks Continue Adderall XL 30 mg daily to see if helps with executive function Continue bupropion XL 300 mg daily; will consider increasing since has not help thus far much with depression Continue fluvoxamine 100 mg daily; for continued depression and anxiety trazodone 50mg scheduled with prn available Patient educated on: diagnosis, medication risk/benefits and therapeutic strategies Informed Consent: understands and further education needed Reason for continued inpatient stay Substantial Risk for: rapid decompensation Time Spent With Patient Time: Total time managing care of this patient today ____ minutes.
[2023-11-09 20:00] VITALS: BP 187/94; PULSE 97; RESP 18; TEMP 36.4; O2SAT 99
[2023-11-09] MEDS: traZODone HCL 50 MG TABLET PO (20:59)
[2023-11-09] MEDS: fluvoxaMINE Maleate 50 MG TABLET 100 MG PO (20:59)
[2023-11-09 21:03] VITALS: BP 187/94
[2023-11-09] MEDS: cloNIDine HCL 0.1 MG TABLET PO (21:03)
[2023-11-09] MEDS: Acetaminophen 325 MG TABLET 650 MG PO (21:04)
[2023-11-10 07:00] VITALS: BMI 39.3
[2023-11-10 08:49] VITALS: BP 104/56; PULSE 61; RESP 20; TEMP 36.8; O2SAT 98
[2023-11-10] MEDS: Dextroamphetamine/Amphetamine XR 10 MG CAP.ER.24H 30 MG PO (09:21)
[2023-11-10 09:23] VITALS: BP 104/56
[2023-11-10] MEDS: lisinopriL 5 MG TABLET PO (09:23)
[2023-11-10] MEDS: buPROPion HCl XL 300 MG TAB.ER.24H PO (09:24)
[2023-11-10] MEDS: Acetaminophen 325 MG TABLET 650 MG PO ×2 (14:09→21:00)
--- NOTE | 2023-11-10 16:57 | P.PNPSI_ITS ---
Subjective Subjective Date of Service: 11/10/23 Reason For Visit: Depression, si Interim History: Met with patient; discussed with team Patient has again become very depressed, downcast affect, isolating, excessively tired, psychomotor retardation. Biofuels Product Manager discussed her symptoms and she is exceedingly worried about surviving once discharged and is feeling very abandoned (which is very much the case). Patient agrees to remain on current regimen as fluvoxamine was recently increased, in hopes that this will help with depression. However senior writer agrees that the situation is intensely challenging and that team is continuing to help her navigate. Mental Status Exam Mental Status Exam Narrative: Pt is alert and oriented; behavior is cooperative, isolative, tired; patient is not in distress; dressed in casual attire, adequately groomed; mood is described as tired and affect congruent, downcast; eye contact now avoidant; Speech is sparse, a little slowed, softer; psychomotor retardation present; thought process is goal directed but concrete; can also be quite circumstantial; Thought content is on psychosocial stressors, homelessness; otherwise pertinent to relevant topics and without any delusional content, paranoid ideations or grandiosity; SI in context of homelessness; no HI; There is no evidence of perceptual disturbance. Patients insight and judgment impaired Diagnostics Vital Signs (24Hr): Vital Signs - 24 hr 11/09/23 20:00 11/09/23 21:03 11/10/23 08:49 Temperature 97.5 F 98.3 F Pulse Rate 97 61 Respiratory Rate 18 20 Blood Pressure 187/94 H 187/94 H 104/56 L Pulse Oximetry 99 98 Oxygen Delivery Method Room Air Room Air 11/10/23 09:23 Temperature Pulse Rate Respiratory Rate Blood Pressure 104/56 L Pulse Oximetry Oxygen Delivery Method BMI result Body Mass Index 39.3 Labs 11/01/23 20:11 11/01/23 20:11 Medications Medications Current Medications Acetaminophen (Acetaminophen 325 Mg Tablet) 650 mg PO Q6H PRN PRN Reason: Headache/Pain Mild Scale (1-3) Last Admin: 11/10/23 14:09 Dose: 650 mg Al Hydroxide/Mg Hydroxide (Magnesium Hydrox/Alum Hydrox 30 Ml Oral.Susp) 30 ml PO Q6H PRN PRN Reason: Heartburn/Nausea Last Admin: 11/02/23 20:07 Dose: 30 ml Amphetamine/Dextroamphetamine (Dextroamphetamine/Amphetamine Xr 10 Mg Cap.Er.24h) 30 mg PO DAILY [facility] Last Admin: 11/10/23 09:21 Dose: 30 mg Bupropion HCl (Bupropion Hcl Xl 300 Mg Tab.Er.24h) 300 mg PO DAILY [facility] Last Admin: 11/10/23 09:24 Dose: 300 mg Clonidine HCl (Clonidine Hcl 0.1 Mg Tablet) 0.1 mg PO BID PRN; Protocol PRN Reason: anxiety Last Admin: 11/09/23 21:03 Dose: 0.1 mg Fluvoxamine Maleate (Fluvoxamine Maleate 50 Mg Tablet) 100 mg PO BEDTIME [facility]THEA Last Admin: 11/09/23 20:59 Dose: 100 mg Hydroxyzine HCl (Hydroxyzine Hcl 25 Mg Tablet) 25 mg PO Q6H PRN PRN Reason: Anxiety Last Admin: 11/09/23 09:24 Dose: 25 mg Lidocaine (Lidocaine 4 % Patch Adh..Patch) 1 patch TRANSDERMA DAILY PRN; Protocol PRN Reason: lower back pain Last Admin: 11/05/23 22:46 Dose: 1 patch Lisinopril (Lisinopril 5 Mg Tablet) 5 mg PO DAILY [facility]; Protocol Last Admin: 11/10/23 09:23 Dose: 5 mg Magnesium Hydroxide (Milk Of Magnesia 30 Ml Oral.Susp) 30 ml PO DAILY PRN PRN Reason: Constipation Patient Own (Probiotic) 1 each PO DAILY [facility] Last Admin: 11/10/23 09:22 Dose: 1 each Pt Own (Cetirizine Hydrochloride Tabs 10 Mg) 10 mg PO DAILY [facility] Last Admin: 11/10/23 09:22 Dose: 10 mg Tetrahydrozoline HCl (Tetrahydrozoline Hcl 0.05% Oph 15 Ml Drpbtl) 1 drop EYE- BOTH QID PRN PRN Reason: dry eyes Trazodone HCl (Trazodone Hcl 50 Mg Tablet) 50 mg PO BEDTIME MRX1 PRN PRN Reason: Insomnia Last Admin: 11/08/23 23:19 Dose: 50 mg Trazodone HCl (Trazodone Hcl 50 Mg Tablet) 50 mg PO BEDTIME [facility] Last Admin: 11/09/23 20:59 Dose: 50 mg Allergies Allergies Allergy/AdvReac Type Severity Reaction Status Date / Time ibuprofen [From Advil] AdvReac Hives Verified 11/01/23 19:36 Assessment & Plan Assessment & Plan (1) MDD (major depressive disorder), recurrent severe, without psychosis: Status: Acute Code(s): F33.2 - Major depressive disorder, recurrent severe without psychotic features (2) Hoarding behavior: Status: Acute Code(s): F42.3 - Hoarding disorder (3) Compulsive shopping: Status: Acute Code(s): F42.8 - Other obsessive-compulsive disorder Plan pt is a 53 yo female with hx of hypertension, depression, shopping addiction, hoarding who presents for depression and SI with plan to overdose on medications in face of becoming homeless. Patient reports that she has had intermittent bouts of depression throughout most of her life. Patient reports that she was 1st started on medications about a year ago but only took them for several months and though they helped with her shopping addiction, did not do that much for depression. She has been off them since July. Her depression has worsened over the past several weeks as she will soon become homeless as her father's estate was pilfered by patient's stepmother. This past week patient started feeling hopeless developed suicidal ideation; the last few days she started have a plan to overdose. Patient actually got her pills out but her brother and [id number] came over and when she told him of her SI, they called crisis. Patient denies history of manic behaviors or episodes; denies AVH, denies alcohol or drug use. Patient has some history of trauma being verbally abused by her parents and bullied. Hospital course: 11/03 pt remains depressed; some SI but says less so. Sad today since sale of the house she's been living in all her life finalized today and now homeless. Pt reports trouble sleeping and agrees to try trazodone. -at this time, it does not seem that patient will be able to navigate much on her own, let alone homelessness. 11/04 Remains depressed but suicidality seems to have mostly resolved. Patient anxious about what will happened or post discharge given her new status of being homeless. Biofuels Product Manager discussed history of school and turns outpatient was held back in the 1st grade and then again in the 5th grade; from the discussion it seems she took modified classes however she appears to be unaware of this. Screen for ADHD and patient endorses symptoms of ADD including trouble focusing, trouble maintaining attention, starting projects, getting distracted and then starting a different project never finishing any of them; losing things repeatedly. Does not seem to have had history of hyperactivity. Patient said it was hard to graduate; never went on to school after high school, lived at home with her parents all her life. Discussed possible trial of Adderall, including risks/side effects and patient agrees to try it. -senior writer wonders if there is possibly a learning disability and or an intellectual disability; not sure if stimulant medication can help with any of this but patient expresses much frustration with being able to complete tasks at home and she is about to be fully responsible for navigating homelessness, finding herself in apartment and doing many things herself she has never had to do before. If stimulant medication can help her, it is senior writer's opinion it has worth a try. Stimulant medication is also an adjunct for antidepressants. No history of drug abuse whatsoever. 11/05 a little brighter, still depressed but no SI; did not notice Adderall and agrees to increase dose -chronic lower back pain seems to be bothering her 11/06 remains depressed; SI when thinking about homelessness; will likely increase Adderall. -pt has no skills for homeless and senior writer is concerned she has an intellectual disability that's never been acknowledged/addressed. Family not symptathetic. 11/07 Patient remains depressed, but no SI. Not benefiting from Adderall and agrees to increase it. Also agrees to increase fluvoxamine for continued depression and anxiety. Patient is very anxious about being homeless and senior writer and manager social responsibility helped patient navigate some plans going forward Discussed patient's history with her [id number] Joaquina who is known her for about 30 years and is the only family member that is empathetic towards patient's situation. Joaquina says that 2 of her own family members have a history of mental illness and intellectual disability and she knew right away, even as a teenager that Margaret struggled with an intellectual disability. Joaquina says that throughout her life, Margaret has struggled to comprehend.. Things. Has a hard time... Very slow... Does not have many skills... She said that patient has had numerous, menial jobs almost all of which she was fired from for not being able to understand how to do the job. Joaquina said that she would tried to explain this to patient's mother but that her parents were very selfish, would not address patient's intellectual disability and did nothing to prepare her for life or for when they . She reports that friend knew the house was going to be sold for about a year but just could not organize herself enough to make any plans; Margaret tried to help her fill out [employer], [employer] and food stamps and found the paperwork only partially completed, numerous things left out or incorrect which was not surprising; she says if she did not fill out the food stamp form for her it would never have been filled. She concurs that patient has significant hoarding problem; also struggles interpersonally and can get inappropriately attached to other people, wanting to date the sales promoter investigating the serial con artist that took their father's money. Joaquina says that patient has regressed coping skills and when upset might yell and run into the room and slam the door. She agrees that patient has no skills at all to navigate homelessness and would be very vulnerable in most shelters. She thinks that patient's extended family has limitations in understanding Margaret's limitations. 11/08 Patient remains anxious, saying anxiety a little more today. Biofuels Product Manager discussed this could possibly be due to Adderall. Patient denies any current benefit from Adderall but agrees to continue to see if this changes. Discussed learning disability which patient is aware of. She remains very worried about what will happen on discharge as she currently has no place to live. Biofuels Product Manager met with patient's brother who reports that he is aware that patient has had an intellectual disability. He said that their parents did not help very much and that patient had a boyfriend at 1 point and another friend but the parents strongly discouraged these relationships because they wanted her at home to take care of them. He and his will try to provide support but she can not stay with them. 11/09 Patient has again become very depressed, downcast affect, isolating, excessively tired, psychomotor retardation clearly present. Biofuels Product Manager discussed her symptoms and she is exceedingly worried about surviving once discharged and is feeling very abandoned (which is very much the case). Patient agrees to remain on current regimen as fluvoxamine was recently increased, in hopes that this will help with depression. However senior writer agrees that the situation is intensely challenging and that team is continuing to help her navigate. -discussed with team who agrees that at this time patient remains vulnerable and unable to take care herself in the community. -Team is actively trying to establish resources for her. Patient is compliant and helping file out [facility] application Plan: CV Q 15 minute checks Continue Adderall XL 30 mg daily to see if helps with executive function Continue bupropion XL 300 mg daily; will consider increasing since has not help thus far much with depression Continue fluvoxamine 100 mg daily; for continued depression and anxiety trazodone 50mg scheduled with prn available Patient educated on: diagnosis, medication risk/benefits and therapeutic strategies Informed Consent: understands Reason for continued inpatient stay Substantial Risk for: inability to function and rapid decompensation Time Spent With Patient Time: Total time managing care of this patient today ____ minutes.
[2023-11-10 20:34] VITALS: BP 171/87; PULSE 104; RESP 20; TEMP 36.4; O2SAT 96
[2023-11-10] MEDS: Lidocaine 4 % Patch ADH..PATCH 1 PATCH TRANSDERMA (21:00)
[2023-11-10] MEDS: fluvoxaMINE Maleate 50 MG TABLET 100 MG PO (21:01)
[2023-11-10] MEDS: hydrOXYzine HCL 25 MG TABLET PO (21:01)
[2023-11-10] MEDS: traZODone HCL 50 MG TABLET PO (21:01)
[2023-11-11 08:06] VITALS: BP 124/56; PULSE 68; RESP 16; TEMP 36.4; O2SAT 98
[2023-11-11] MEDS: Dextroamphetamine/Amphetamine XR 10 MG CAP.ER.24H 30 MG PO (08:30)
[2023-11-11] MEDS: buPROPion HCl XL 300 MG TAB.ER.24H PO (08:30)
[2023-11-11] MEDS: lisinopriL 5 MG TABLET PO (08:31)
--- NOTE | 2023-11-11 13:27 | P.PNPSI_ITS ---
Subjective Subjective Date of Service: 11/11/23 Reason For Visit: Depression, si Subjective Notes: Conditional Voluntary Interim History: Pt reports feeling anxious and depressed today; pt stated, I don't know if the ADHD or depression medication is doing anything. I don't feel any different . Pt reports she is worried about finding a job and being able to keep it because I feel like it's hard for me to keep one . Pt reports suicidal ideation d/t not knowing where I'm going to live or go after here ; she denies plan. Pt denies HI/VH/AH. Medication Compliance: Yes Side effects from medications: No Attending Groups: Yes Review of Systems Constitutional: Reports as per HPI Eyes: Reports as per HPI Reports as per HPI Cardiovascular: Reports as per HPI Respiratory: Reports as per HPI Gastrointestinal: Reports as per HPI Genitourinary: Reports as per HPI Musculoskeletal: Reports as per HPI Skin/Breast: Reports as per HPI Reports as per HPI Psychiatric: Reports as per HPI Endocrine: Reports as per HPI Hematologic/Lymphatic: Reports as per HPI Allergic/Immunologic: Reports as per HPI Mental Status Exam Mental Status Exam Narrative: Pt is alert and oriented; behavior is cooperative and calm; dressed in casual attire; mood is described as anxious and depressed ; eye contact appropriate; Speech is normal rate, volume and not pressured; thought process is organized and goal directed; Thought content is on tx; denies HI/VH/AH. Pt reports suicidal ideation with no plan. Diagnostics Vital Signs (24Hr): Vital Signs - 24 hr 11/10/23 20:34 11/11/23 08:06 Temperature 97.6 F 97.6 F Pulse Rate 104 H 68 Respiratory Rate 20 16 Blood Pressure 171/87 H 124/56 L Pulse Oximetry 96 98 Oxygen Delivery Method Room Air Room Air BMI result Body Mass Index 39.3 Labs 11/01/23 20:11 11/01/23 20:11 Medications Medications Current Medications Acetaminophen (Acetaminophen 325 Mg Tablet) 650 mg PO Q6H PRN PRN Reason: Headache/Pain Mild Scale (1-3) Last Admin: 11/10/23 21:00 Dose: 650 mg Al Hydroxide/Mg Hydroxide (Magnesium Hydrox/Alum Hydrox 30 Ml Oral.Susp) 30 ml PO Q6H PRN PRN Reason: Heartburn/Nausea Last Admin: 11/02/23 20:07 Dose: 30 ml Amphetamine/Dextroamphetamine (Dextroamphetamine/Amphetamine Xr 10 Mg Cap.Er.24h) 30 mg PO DAILY [facility] Last Admin: 11/11/23 08:30 Dose: 30 mg Bupropion HCl (Bupropion Hcl Xl 300 Mg Tab.Er.24h) 300 mg PO DAILY [facility] Last Admin: 11/11/23 08:30 Dose: 300 mg Clonidine HCl (Clonidine Hcl 0.1 Mg Tablet) 0.1 mg PO BID PRN; Protocol PRN Reason: anxiety Last Admin: 11/09/23 21:03 Dose: 0.1 mg Fluvoxamine Maleate (Fluvoxamine Maleate 50 Mg Tablet) 100 mg PO BEDTIME [facility] Last Admin: 11/10/23 21:01 Dose: 100 mg Hydroxyzine HCl (Hydroxyzine Hcl 25 Mg Tablet) 25 mg PO Q6H PRN PRN Reason: Anxiety Last Admin: 11/10/23 21:01 Dose: 25 mg Lidocaine (Lidocaine 4 % Patch Adh..Patch) 1 patch TRANSDERMA DAILY PRN; Protocol PRN Reason: lower back pain Last Admin: 11/10/23 21:00 Dose: 1 patch Lisinopril (Lisinopril 5 Mg Tablet) 5 mg PO DAILY [facility]; Protocol Last Admin: 11/11/23 08:31 Dose: 5 mg Magnesium Hydroxide (Milk Of Magnesia 30 Ml Oral.Susp) 30 ml PO DAILY PRN PRN Reason: Constipation Patient Own (Probiotic) 1 each PO DAILY [facility] Last Admin: 11/11/23 08:29 Dose: 1 each Pt Own (Cetirizine Hydrochloride Tabs 10 Mg) 10 mg PO DAILY [facility] Last Admin: 11/11/23 08:29 Dose: 10 mg Tetrahydrozoline HCl (Tetrahydrozoline Hcl 0.05% Oph 15 Ml Drpbtl) 1 drop EYE- BOTH QID PRN PRN Reason: dry eyes Trazodone HCl (Trazodone Hcl 50 Mg Tablet) 50 mg PO BEDTIME MRX1 PRN PRN Reason: Insomnia Last Admin: 11/08/23 23:19 Dose: 50 mg Trazodone HCl (Trazodone Hcl 50 Mg Tablet) 50 mg PO BEDTIME [facility] Last Admin: 11/10/23 21:01 Dose: 50 mg Allergies Allergies Allergy/AdvReac Type Severity Reaction Status Date / Time ibuprofen [From Advil] AdvReac Hives Verified 11/01/23 19:36 Assessment & Plan Assessment & Plan (1) MDD (major depressive disorder), recurrent severe, without psychosis: Status: Acute Code(s): F33.2 - Major depressive disorder, recurrent severe without psychotic features (2) Hoarding behavior: Status: Acute Code(s): F42.3 - Hoarding disorder (3) Compulsive shopping: Status: Acute Code(s): F42.8 - Other obsessive-compulsive disorder Plan pt is a 53 yo female with hx of hypertension, depression, shopping addiction, hoarding who presents for depression and SI with plan to overdose on medications in face of becoming homeless. Patient reports that she has had intermittent bouts of depression throughout most of her life. Patient reports that she was 1st started on medications about a year ago but only took them for several months and though they helped with her shopping addiction, did not do that much for depression. She has been off them since July. Her depression has worsened over the past several weeks as she will soon become homeless as her father's estate was pilfered by patient's stepmother. This past week patient started feeling hopeless developed suicidal ideation; the last few days she started have a plan to overdose. Patient actually got her pills out but her brother and [id number] came over and when she told him of her SI, they called crisis. Patient denies history of manic behaviors or episodes; denies AVH, denies alcohol or drug use. Patient has some history of trauma being verbally abused by her parents and bullied. Hospital course: 11/03 pt remains depressed; some SI but says less so. Sad today since sale of the house she's been living in all her life finalized today and now homeless. Pt reports trouble sleeping and agrees to try trazodone. -at this time, it does not seem that patient will be able to navigate much on her own, let alone homelessness. 11/04 Remains depressed but suicidality seems to have mostly resolved. Patient anxious about what will happened or post discharge given her new status of being homeless. Manager Wellness discussed history of school and turns outpatient was held back in the 1st grade and then again in the 5th grade; from the discussion it seems she took modified classes however she appears to be unaware of this. Screen for ADHD and patient endorses symptoms of ADD including trouble focusing, trouble maintaining attention, starting projects, getting distracted and then starting a different project never finishing any of them; losing things repeatedly. Does not seem to have had history of hyperactivity. Patient said it was hard to graduate; never went on to school after high school, lived at home with her parents all her life. Discussed possible trial of Adderall, including risks/side effects and patient agrees to try it. -commercial lines underwriter wonders if there is possibly a learning disability and or an intellectual disability; not sure if stimulant medication can help with any of this but patient expresses much frustration with being able to complete tasks at home and she is about to be fully responsible for navigating homelessness, finding herself in apartment and doing many things herself she has never had to do before. If stimulant medication can help her, it is commercial lines underwriter's opinion it has worth a try. Stimulant medication is also an adjunct for antidepressants. No history of drug abuse whatsoever. 11/05 a little brighter, still depressed but no SI; did not notice Adderall and agrees to increase dose -chronic lower back pain seems to be bothering her 11/06 remains depressed; SI when thinking about homelessness; will likely increase Adderall. -pt has no skills for homeless and commercial lines underwriter is concerned she has an intellectual disability that's never been acknowledged/addressed. Family not symptathetic. 11/07 Patient remains depressed, but no SI. Not benefiting from Adderall and agrees to increase it. Also agrees to increase fluvoxamine for continued depression and anxiety. Patient is very anxious about being homeless and commercial lines underwriter and social director helped patient navigate some plans going forward Discussed patient's history with her [id number] Joaquina who is known her for about 30 years and is the only family member that is empathetic towards patient's situation. Joaquina says that 2 of her own family members have a history of mental illness and intellectual disability and she knew right away, even as a teenager that Margaret struggled with an intellectual disability. Joaquina says that throughout her life, Margaret has struggled to comprehend.. Things. Has a hard time... Very slow... Does not have many skills... She said that patient has had numerous, menial jobs almost all of which she was fired from for not being able to understand how to do the job. Joaquina said that she would tried to explain this to patient's mother but that her parents were very selfish, would not address patient's intellectual disability and did nothing to prepare her for life or for when they . She reports that friend knew the house was going to be sold for about a year but just could not organize herself enough to make any plans; Margaret tried to help her fill out [employer], [employer] and food stamps and found the paperwork only partially completed, numerous things left out or incorrect which was not surprising; she says if she did not fill out the food stamp form for her it would never have been filled. She concurs that patient has significant hoarding problem; also struggles interpersonally and can get inappropriately attached to other people, wanting to date the independent marketing consultant investigating the serial con artist that took their father's money. Joaquina says that patient has regressed coping skills and when upset might yell and run into the room and slam the door. She agrees that patient has no skills at all to navigate homelessness and would be very vulnerable in most shelters. She thinks that patient's extended family has limitations in understanding Margaret's limitations. 11/08 Patient remains anxious, saying anxiety a little more today. Manager Wellness discussed this could possibly be due to Adderall. Patient denies any current benefit from Adderall but agrees to continue to see if this changes. Discussed learning disability which patient is aware of. She remains very worried about what will happen on discharge as she currently has no place to live. Manager Wellness met with patient's brother who reports that he is aware that patient has had an intellectual disability. He said that their parents did not help very much and that patient had a boyfriend at 1 point and another friend but the parents strongly discouraged these relationships because they wanted her at home to take care of them. He and his will try to provide support but she can not stay with them. 11/09 Patient has again become very depressed, downcast affect, isolating, excessively tired, psychomotor retardation clearly present. Manager Wellness discussed her symptoms and she is exceedingly worried about surviving once discharged and is feeling very abandoned (which is very much the case). Patient agrees to remain on current regimen as fluvoxamine was recently increased, in hopes that this will help with depression. However commercial lines underwriter agrees that the situation is intensely challenging and that team is continuing to help her navigate. -discussed with team who agrees that at this time patient remains vulnerable and unable to take care herself in the community. -Team is actively trying to establish resources for her. Patient is compliant and helping file out [facility] application 11/10: continue current tx plan. Plan: CV Q 15 minute checks Continue Adderall XL 30 mg daily to see if helps with executive function Continue bupropion XL 300 mg daily; will consider increasing since has not help thus far much with depression Continue fluvoxamine 100 mg daily; for continued depression and anxiety trazodone 50mg scheduled with prn available Patient educated on: diagnosis, medication risk/benefits and therapeutic strategies Reason for continued inpatient stay Substantial Risk for: harm to self and med/psych decompensation Time Spent With Patient Time: Total time managing care of this patient today _20___ minutes.
[2023-11-11 14:35] VITALS: BP 142/84
[2023-11-11] MEDS: cloNIDine HCL 0.1 MG TABLET PO (14:35)
[2023-11-11] MEDS: Lidocaine 4 % Patch ADH..PATCH 1 PATCH TRANSDERMA (14:36)
[2023-11-11] MEDS: Milk of Magnesia 30 ML ORAL.SUSP PO (15:48)
[2023-11-11] MEDS: traZODone HCL 50 MG TABLET PO (20:43)
[2023-11-11] MEDS: fluvoxaMINE Maleate 50 MG TABLET 100 MG PO (20:43)
[2023-11-11] MEDS: Acetaminophen 325 MG TABLET 650 MG PO (20:47)
[2023-11-11] MEDS: hydrOXYzine HCL 25 MG TABLET PO (20:47)
[2023-11-11 22:00] VITALS: BP 128/64; PULSE 90; TEMP 36.4; O2SAT 99
[2023-11-12] MEDS: Dextroamphetamine/Amphetamine XR 10 MG CAP.ER.24H 30 MG PO (08:51)
[2023-11-12] MEDS: lisinopriL 5 MG TABLET PO (08:51)
[2023-11-12] MEDS: buPROPion HCl XL 300 MG TAB.ER.24H PO (08:51)
[2023-11-12 09:47] VITALS: BP 105/57; PULSE 66; RESP 18; TEMP 36.3; O2SAT 99
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
[2023-11-12] MEDS: fluvoxaMINE Maleate 50 MG TABLET 100 MG PO (20:49)
[2023-11-12] MEDS: traZODone HCL 50 MG TABLET PO ×2 (20:49→23:52)
[2023-11-12] MEDS: Acetaminophen 325 MG TABLET 650 MG PO (20:57)
[2023-11-12 22:00] VITALS: BP 154/75; PULSE 89; RESP 18; TEMP 36.4; O2SAT 98
[2023-11-12] MEDS: cloNIDine HCL 0.1 MG TABLET PO (23:52)
[2023-11-13 05:00] VITALS: BP 172/77; PULSE 70; O2SAT 99
[2023-11-13 09:30] VITALS: BP 116/56; PULSE 67; RESP 20; TEMP 36.4; O2SAT 97
[2023-11-13] MEDS: Dextroamphetamine/Amphetamine XR 10 MG CAP.ER.24H 30 MG PO (09:30)
[2023-11-13 09:31] VITALS: BP 116/56
[2023-11-13] MEDS: lisinopriL 5 MG TABLET PO (09:31)
[2023-11-13] MEDS: buPROPion HCl XL 300 MG TAB.ER.24H PO (09:31)
[2023-11-13] MEDS: Acetaminophen 325 MG TABLET 650 MG PO (11:14)
--- NOTE | 2023-11-13 17:06 | P.PNPSI_ITS ---
Subjective Subjective Date of Service: 11/13/23 Reason For Visit: Depression, si Interim History: Pt reports feeling numb. she reports still depressed and sad. reports mind racing at night. Pt reports suicidal ideation d/tno where to live. she denies plan. Pt denies HI/VH/AH. Medication Compliance: Yes Side effects from medications: No Attending Groups: Intermittent Review of Systems Acute medical concerns: No Medical Review of Systems: unchanged Review of Systems Review of Systems Yes all other systems are reviewed and are negative Constitutional: Reports as per HPI Eyes: Reports as per HPI Reports as per HPI Cardiovascular: Reports as per HPI Respiratory: Reports as per HPI Gastrointestinal: Reports as per HPI Musculoskeletal: Reports as per HPI Skin/Breast: Reports as per HPI Reports as per HPI Psychiatric: Reports as per HPI Endocrine: Reports as per HPI Hematologic/Lymphatic: Reports as per HPI Allergic/Immunologic: Reports as per HPI Mental Status Exam Mental Status Exam Narrative: Pt is alert and oriented; behavior is cooperative and calm; dressed in casual attire; mood is described as anxious and depressed ; eye contact appropriate; Speech is normal rate, volume and not pressured; thought process is organized and goal directed; Thought content is on tx; denies HI/VH/AH. Pt reports suicidal ideation with no plan. Judgement: Fair Diagnostics Vital Signs (24Hr): Vital Signs - 24 hr 11/12/23 22:00 11/13/23 05:00 11/13/23 09:30 Temperature 97.6 F 97.6 F Pulse Rate 89 70 67 Respiratory Rate 18 20 Blood Pressure 154/75 H 172/77 H 116/56 L Pulse Oximetry 98 99 97 Oxygen Delivery Method Room Air Room Air Room Air 11/13/23 09:31 Temperature Pulse Rate Respiratory Rate Blood Pressure 116/56 L Pulse Oximetry Oxygen Delivery Method BMI result Body Mass Index 39.3 Labs 11/01/23 20:11 11/01/23 20:11 Medications Medications Current Medications Acetaminophen (Acetaminophen 325 Mg Tablet) 650 mg PO Q6H PRN PRN Reason: Headache/Pain Mild Scale (1-3) Last Admin: 11/13/23 11:14 Dose: 650 mg Al Hydroxide/Mg Hydroxide (Magnesium Hydrox/Alum Hydrox 30 Ml Oral.Susp) 30 ml PO Q6H PRN PRN Reason: Heartburn/Nausea Last Admin: 11/02/23 20:07 Dose: 30 ml Amphetamine/Dextroamphetamine (Dextroamphetamine/Amphetamine Xr 10 Mg Cap.Er.24h) 30 mg PO DAILY ALTHEA Last Admin: 11/13/23 09:30 Dose: 30 mg Bupropion HCl (Bupropion Hcl Xl 300 Mg Tab.Er.24h) 300 mg PO DAILY ALTHEA Last Admin: 11/13/23 09:31 Dose: 300 mg Clonidine HCl (Clonidine Hcl 0.1 Mg Tablet) 0.1 mg PO BID PRN; Protocol PRN Reason: anxiety Last Admin: 11/12/23 23:52 Dose: 0.1 mg Fluvoxamine Maleate (Fluvoxamine Maleate 50 Mg Tablet) 100 mg PO BEDTIME ALTHEA Last Admin: 11/12/23 20:49 Dose: 100 mg Hydroxyzine HCl (Hydroxyzine Hcl 25 Mg Tablet) 25 mg PO Q6H PRN PRN Reason: Anxiety Last Admin: 11/11/23 20:47 Dose: 25 mg Lidocaine (Lidocaine 4 % Patch Adh..Patch) 1 patch TRANSDERMA DAILY PRN; Protocol PRN Reason: lower back pain Last Admin: 11/11/23 14:36 Dose: 1 patch Lisinopril (Lisinopril 5 Mg Tablet) 5 mg PO DAILY ALTHEA; Protocol Last Admin: 11/13/23 09:31 Dose: 5 mg Magnesium Hydroxide (Milk Of Magnesia 30 Ml Oral.Susp) 30 ml PO DAILY PRN PRN Reason: Constipation Last Admin: 11/11/23 15:48 Dose: 30 ml Patient Own (Probiotic) 1 each PO DAILY ALTHEA Last Admin: 11/13/23 09:31 Dose: 1 each Pt Own (Cetirizine Hydrochloride Tabs 10 Mg) 10 mg PO DAILY ALTHEA Last Admin: 11/13/23 09:32 Dose: 10 mg Tetrahydrozoline HCl (Tetrahydrozoline Hcl 0.05% Oph 15 Ml Drpbtl) 1 drop EYE- BOTH QID PRN PRN Reason: dry eyes Trazodone HCl (Trazodone Hcl 50 Mg Tablet) 50 mg PO BEDTIME MRX1 PRN PRN Reason: Insomnia Last Admin: 11/12/23 23:52 Dose: 50 mg Trazodone HCl (Trazodone Hcl 50 Mg Tablet) 50 mg PO BEDTIME ALTHEA Last Admin: 11/12/23 20:49 Dose: 50 mg Allergies Allergies Allergy/AdvReac Type Severity Reaction Status Date / Time ibuprofen [From Advil] AdvReac Hives Verified 11/01/23 19:36 Assessment & Plan Assessment & Plan (1) MDD (major depressive disorder), recurrent severe, without psychosis: Status: Acute Code(s): F33.2 - Major depressive disorder, recurrent severe without psychotic features (2) Hoarding behavior: Status: Acute Code(s): F42.3 - Hoarding disorder (3) Compulsive shopping: Status: Acute Code(s): F42.8 - Other obsessive-compulsive disorder Plan pt is a 53 yo female with hx of hypertension, depression, shopping addiction, hoarding who presents for depression and SI with plan to overdose on medications in face of becoming homeless. Patient reports that she has had intermittent bouts of depression throughout most of her life. Patient reports that she was 1st started on medications about a year ago but only took them for several months and though they helped with her shopping addiction, did not do that much for depression. She has been off them since July. Her depression has worsened over the past several weeks as she will soon become homeless as her father's estate was pilfered by patient's stepmother. This past week patient started feeling hopeless developed suicidal ideation; the last few days she started have a plan to overdose. Patient actually got her pills out but her brother and [id number] came over and when she told him of her SI, they called crisis. Patient denies history of manic behaviors or episodes; denies AVH, denies alcohol or drug use. Patient has some history of trauma being verbally abused by her parents and bullied. Hospital course: 11/03 pt remains depressed; some SI but says less so. Sad today since sale of the house she's been living in all her life finalized today and now homeless. Pt reports trouble sleeping and agrees to try trazodone. -at this time, it does not seem that patient will be able to navigate much on her own, let alone homelessness. 11/04 Remains depressed but suicidality seems to have mostly resolved. Patient anxious about what will happened or post discharge given her new status of being homeless. Corporate Director Of Human Resources discussed history of school and turns outpatient was held back in the 1st grade and then again in the 5th grade; from the discussion it seems she took modified classes however she appears to be unaware of this. Screen for ADHD and patient endorses symptoms of ADD including trouble focusing, trouble maintaining attention, starting projects, getting distracted and then starting a different project never finishing any of them; losing things repeatedly. Does not seem to have had history of hyperactivity. Patient said it was hard to graduate; never went on to school after high school, lived at home with her parents all her life. Discussed possible trial of Adderall, including risks/side effects and patient agrees to try it. -health technical writer wonders if there is possibly a learning disability and or an intellectual disability; not sure if stimulant medication can help with any of this but patient expresses much frustration with being able to complete tasks at home and she is about to be fully responsible for navigating homelessness, finding herself in apartment and doing many things herself she has never had to do before. If stimulant medication can help her, it is health technical writer's opinion it has worth a try. Stimulant medication is also an adjunct for antidepressants. No history of drug abuse whatsoever. 11/05 a little brighter, still depressed but no SI; did not notice Adderall and agrees to increase dose -chronic lower back pain seems to be bothering her 11/06 remains depressed; SI when thinking about homelessness; will likely increase Adderall. -pt has no skills for homeless and health technical writer is concerned she has an intellectual disability that's never been acknowledged/addressed. Family not symptathetic. 11/07 Patient remains depressed, but no SI. Not benefiting from Adderall and agrees to increase it. Also agrees to increase fluvoxamine for continued depression and anxiety. Patient is very anxious about being homeless and health technical writer and social work instructor helped patient navigate some plans going forward Discussed patient's history with her [id number] Joaquina who is known her for about 30 years and is the only family member that is empathetic towards patient's situation. Joaquina says that 2 of her own family members have a history of mental illness and intellectual disability and she knew right away, even as a teenager that Margaret struggled with an intellectual disability. Joaquina says that throughout her life, Margaret has struggled to comprehend.. Things. Has a hard time... Very slow... Does not have many skills... She said that patient has had numerous, menial jobs almost all of which she was fired from for not being able to understand how to do the job. Joaquina said that she would tried to explain this to patient's mother but that her parents were very selfish, would not address patient's intellectual disability and did nothing to prepare her for life or for when they . She reports that friend knew the house was going to be sold for about a year but just could not organize herself enough to make any plans; Margaret tried to help her fill out [employer], [employer] and food stamps and found the paperwork only partially completed, numerous things left out or incorrect which was not surprising; she says if she did not fill out the food stamp form for her it would never have been filled. She concurs that patient has significant hoarding problem; also struggles interpersonally and can get inappropriately attached to other people, wanting to date the social psychologist investigating the serial con artist that took their father's money. Joaquina says that patient has regressed coping skills and when upset might yell and run into the room and slam the door. She agrees that patient has no skills at all to navigate homelessness and would be very vulnerable in most shelters. She thinks that patient's extended family has limitations in understanding Margaret's limitations. 11/08 Patient remains anxious, saying anxiety a little more today. Corporate Director Of Human Resources discussed this could possibly be due to Adderall. Patient denies any current benefit from Adderall but agrees to continue to see if this changes. Discussed learning disability which patient is aware of. She remains very worried about what will happen on discharge as she currently has no place to live. Corporate Director Of Human Resources met with patient's brother who reports that he is aware that patient has had an intellectual disability. He said that their parents did not help very much and that patient had a boyfriend at 1 point and another friend but the parents strongly discouraged these relationships because they wanted her at home to take care of them. He and his will try to provide support but she can not stay with them. 11/09 Patient has again become very depressed, downcast affect, isolating, excessively tired, psychomotor retardation clearly present. Corporate Director Of Human Resources discussed her symptoms and she is exceedingly worried about surviving once discharged and is feeling very abandoned (which is very much the case). Patient agrees to remain on current regimen as fluvoxamine was recently increased, in hopes that this will help with depression. However health technical writer agrees that the situation is intensely challenging and that team is continuing to help her navigate. -discussed with team who agrees that at this time patient remains vulnerable and unable to take care herself in the community. -Team is actively trying to establish resources for her. Patient is compliant and helping file out [facility] application 11/10: continue current tx plan. 11/11 continue tx plan 11/12 continue tx plan Plan: CV Q 15 minute checks Continue Adderall XL 30 mg daily to see if helps with executive function Continue bupropion XL 300 mg daily; will consider increasing since has not help thus far much with depression Continue fluvoxamine 100 mg daily; for continued depression and anxiety trazodone 50mg scheduled with prn available Reason for continued inpatient stay Substantial Risk for: harm to self and inability to function Time Spent With Patient Time: Total time managing care of this patient today ____ minutes.
[2023-11-13] MEDS: fluvoxaMINE Maleate 50 MG TABLET 100 MG PO (20:24)
[2023-11-13] MEDS: traZODone HCL 50 MG TABLET PO ×2 (20:24)
[2023-11-13 22:00] VITALS: BP 144/77; PULSE 106; RESP 18; TEMP 36.3; O2SAT 100
[2023-11-13] MEDS: Lidocaine 4 % Patch ADH..PATCH 1 PATCH TRANSDERMA (22:38)
[2023-11-14] MEDS: lisinopriL 5 MG TABLET PO (08:51)
[2023-11-14] MEDS: buPROPion HCl XL 300 MG TAB.ER.24H PO (08:51)
[2023-11-14] MEDS: Dextroamphetamine/Amphetamine XR 10 MG CAP.ER.24H 30 MG PO (08:51)
[2023-11-14] MEDS: Acetaminophen 325 MG TABLET 650 MG PO (09:09)
[2023-11-14 09:16] VITALS: BP 162/82; PULSE 77; RESP 18; TEMP 36.4; O2SAT 97
--- NOTE | 2023-11-14 09:41 | P.PNPSI_ITS ---
Subjective Subjective Date of Service: 11/14/23 Reason For Visit: Depression, si Interim History: met with patient; discussed with team; reviewed chart Diagnostics Vital Signs (24Hr): Vital Signs - 24 hr 11/13/23 22:00 11/14/23 09:16 Temperature 97.4 F 97.5 F Pulse Rate 106 H 77 Respiratory Rate 18 18 Blood Pressure 144/77 H 162/82 H Pulse Oximetry 100 97 Oxygen Delivery Method Room Air Room Air BMI result Body Mass Index 39.3 Labs 11/01/23 20:11 11/01/23 20:11 Medications Medications Current Medications Acetaminophen (Acetaminophen 325 Mg Tablet) 650 mg PO Q6H PRN PRN Reason: Headache/Pain Mild Scale (1-3) Last Admin: 11/14/23 09:09 Dose: 650 mg Al Hydroxide/Mg Hydroxide (Magnesium Hydrox/Alum Hydrox 30 Ml Oral.Susp) 30 ml PO Q6H PRN PRN Reason: Heartburn/Nausea Last Admin: 11/02/23 20:07 Dose: 30 ml Amphetamine/Dextroamphetamine (Dextroamphetamine/Amphetamine Xr 10 Mg Cap.Er.24h) 30 mg PO DAILY ALTHEA Last Admin: 11/14/23 08:51 Dose: 30 mg Bupropion HCl (Bupropion Hcl Xl 300 Mg Tab.Er.24h) 300 mg PO DAILY ALTHEA Last Admin: 11/14/23 08:51 Dose: 300 mg Clonidine HCl (Clonidine Hcl 0.1 Mg Tablet) 0.1 mg PO BID PRN; Protocol PRN Reason: anxiety Last Admin: 11/12/23 23:52 Dose: 0.1 mg Fluvoxamine Maleate (Fluvoxamine Maleate 50 Mg Tablet) 100 mg PO BEDTIME ALTHEA Last Admin: 11/13/23 20:24 Dose: 100 mg Hydroxyzine HCl (Hydroxyzine Hcl 25 Mg Tablet) 25 mg PO Q6H PRN PRN Reason: Anxiety Last Admin: 11/11/23 20:47 Dose: 25 mg Lidocaine (Lidocaine 4 % Patch Adh..Patch) 1 patch TRANSDERMA DAILY PRN; Protocol PRN Reason: lower back pain Last Admin: 11/13/23 22:38 Dose: 1 patch Lisinopril (Lisinopril 5 Mg Tablet) 5 mg PO DAILY ALTHEA; Protocol Last Admin: 11/14/23 08:51 Dose: 5 mg Magnesium Hydroxide (Milk Of Magnesia 30 Ml Oral.Susp) 30 ml PO DAILY PRN PRN Reason: Constipation Last Admin: 11/11/23 15:48 Dose: 30 ml Patient Own (Probiotic) 1 each PO DAILY ALTHEA Last Admin: 11/14/23 08:52 Dose: 1 each Pt Own (Cetirizine Hydrochloride Tabs 10 Mg) 10 mg PO DAILY ALTHEA Last Admin: 11/14/23 08:51 Dose: 10 mg Tetrahydrozoline HCl (Tetrahydrozoline Hcl 0.05% Oph 15 Ml Drpbtl) 1 drop EYE- BOTH QID PRN PRN Reason: dry eyes Trazodone HCl (Trazodone Hcl 50 Mg Tablet) 50 mg PO BEDTIME MRX1 PRN PRN Reason: Insomnia Last Admin: 11/13/23 20:24 Dose: 50 mg Trazodone HCl (Trazodone Hcl 50 Mg Tablet) 50 mg PO BEDTIME ALTHEA Last Admin: 11/13/23 20:24 Dose: 50 mg Allergies Allergies Allergy/AdvReac Type Severity Reaction Status Date / Time ibuprofen [From Advil] AdvReac Hives Verified 11/01/23 19:36 Assessment & Plan Assessment & Plan (1) MDD (major depressive disorder), recurrent severe, without psychosis: Status: Acute Code(s): F33.2 - Major depressive disorder, recurrent severe without psychotic features (2) Hoarding behavior: Status: Acute Code(s): F42.3 - Hoarding disorder (3) Compulsive shopping: Status: Acute Code(s): F42.8 - Other obsessive-compulsive disorder Plan pt is a 53 yo female with hx of hypertension, depression, shopping addiction, hoarding who presents for depression and SI with plan to overdose on medications in face of becoming homeless. Patient reports that she has had intermittent bouts of depression throughout most of her life. Patient reports that she was 1st started on medications about a year ago but only took them for several months and though they helped with her shopping addiction, did not do that much for depression. She has been off them since July. Her depression has worsened over the past several weeks as she will soon become homeless as her father's estate was pilfered by patient's stepmother. This past week patient started feeling hopeless developed suicidal ideation; the last few days she started have a plan to overdose. Patient actually got her pills out but her brother and [id number] came over and when she told him of her SI, they called crisis. Patient denies history of manic behaviors or episodes; denies AVH, denies alcohol or drug use. Patient has some history of trauma being verbally abused by her parents and bullied. Hospital course: 11/03 pt remains depressed; some SI but says less so. Sad today since sale of the house she's been living in all her life finalized today and now homeless. Pt reports trouble sleeping and agrees to try trazodone. -at this time, it does not seem that patient will be able to navigate much on her own, let alone homelessness. 11/04 Remains depressed but suicidality seems to have mostly resolved. Patient anxious about what will happened or post discharge given her new status of being homeless. Pit Manager discussed history of school and turns outpatient was held back in the 1st grade and then again in the 5th grade; from the discussion it seems she took modified classes however she appears to be unaware of this. Screen for ADHD and patient endorses symptoms of ADD including trouble focusing, trouble maintaining attention, starting projects, getting distracted and then starting a different project never finishing any of them; losing things repeatedly. Does not seem to have had history of hyperactivity. Patient said it was hard to graduate; never went on to school after high school, lived at home with her parents all her life. Discussed possible trial of Adderall, including risks/side effects and patient agrees to try it. -adjusto writer operator wonders if there is possibly a learning disability and or an intellectual disability; not sure if stimulant medication can help with any of this but patient expresses much frustration with being able to complete tasks at home and she is about to be fully responsible for navigating homelessness, finding herself in apartment and doing many things herself she has never had to do before. If stimulant medication can help her, it is adjusto writer operator's opinion it has worth a try. Stimulant medication is also an adjunct for antidepressants. No history of drug abuse whatsoever. 11/05 a little brighter, still depressed but no SI; did not notice Adderall and agrees to increase dose -chronic lower back pain seems to be bothering her 11/06 remains depressed; SI when thinking about homelessness; will likely increase Adderall. -pt has no skills for homeless and adjusto writer operator is concerned she has an intellectual disability that's never been acknowledged/addressed. Family not symptathetic. 11/07 Patient remains depressed, but no SI. Not benefiting from Adderall and agrees to increase it. Also agrees to increase fluvoxamine for continued depression and anxiety. Patient is very anxious about being homeless and adjusto writer operator and social service director helped patient navigate some plans going forward Discussed patient's history with her [id number] Joaquina who is known her for about 30 years and is the only family member that is empathetic towards patient's situation. Joaquina says that 2 of her own family members have a history of mental illness and intellectual disability and she knew right away, even as a teenager that Margaret struggled with an intellectual disability. Joaquina says that throughout her life, Margaret has struggled to comprehend.. Things. Has a hard time... Very slow... Does not have many skills... She said that patient has had numerous, menial jobs almost all of which she was fired from for not being able to understand how to do the job. Joaquina said that she would tried to explain this to patient's mother but that her parents were very selfish, would not address patient's intellectual disability and did nothing to prepare her for life or for when they . She reports that friend knew the house was going to be sold for about a year but just could not organize herself enough to make any plans; Margaret tried to help her fill out [employer], [employer] and food stamps and found the paperwork only partially completed, numerous things left out or incorrect which was not surprising; she says if she did not fill out the food stamp form for her it would never have been filled. She concurs that patient has significant hoarding problem; also struggles interpersonally and can get inappropriately attached to other people, wanting to date the community services manager investigating the serial con artist that took their father's money. Joaquina says that patient has regressed coping skills and when upset might yell and run into the room and slam the door. She agrees that patient has no skills at all to navigate homelessness and would be very vulnerable in most shelters. She thinks that patient's extended family has limitations in understanding Margaret's limitations. 11/08 Patient remains anxious, saying anxiety a little more today. Pit Manager discussed this could possibly be due to Adderall. Patient denies any current benefit from Adderall but agrees to continue to see if this changes. Discussed learning disability which patient is aware of. She remains very worried about what will happen on discharge as she currently has no place to live. Pit Manager met with patient's brother who reports that he is aware that patient has had an intellectual disability. He said that their parents did not help very much and that patient had a boyfriend at 1 point and another friend but the parents strongly discouraged these relationships because they wanted her at home to take care of them. He and his will try to provide support but she can not stay with them. 11/09 Patient has again become very depressed, downcast affect, isolating, excessively tired, psychomotor retardation clearly present. Pit Manager discussed her symptoms and she is exceedingly worried about surviving once discharged and is feeling very abandoned (which is very much the case). Patient agrees to remain on current regimen as fluvoxamine was recently increased, in hopes that this will help with depression. However adjusto writer operator agrees that the situation is intensely challenging and that team is continuing to help her navigate. -discussed with team who agrees that at this time patient remains vulnerable and unable to take care herself in the community. -Team is actively trying to establish resources for her. Patient is compliant and helping file out [facility] application 11/10: continue current tx plan. 11/11 continue tx plan Plan: CV Q 15 minute checks Continue Adderall XL 30 mg daily to see if helps with executive function Continue bupropion XL 300 mg daily; will consider increasing since has not help thus far much with depression Continue fluvoxamine 100 mg daily; for continued depression and anxiety trazodone 50mg scheduled with prn available Time Spent With Patient Time: Total time managing care of this patient today ____ minutes.
--- NOTE | 2023-11-14 13:16 | PM.PSYDC ---
DS: Providers Provider Date of Service: 11/14/23 Date of admission: 11/02/23 12:06 Date of discharge: 11/14/23 Primary care physician: Unknown Physician DS: Diagnosis Discharge Diagnosis (1) MDD (major depressive disorder), recurrent severe, without psychosis: Status: Acute (2) Hoarding behavior: Status: Acute (3) Compulsive shopping: Status: Acute DS: Medications Discharge Medications Home Medications: Previous Rx's ?Medication ?Instructions ?Recorded Patient Own Medication 1 ea PO DAILY ##0 11/14/23 bupropion HCl 300 mg 24 hr tablet, 300 mg PO DAILY 30 days #30 tabs 11/14/23 extended release cetirizine 10 mg capsule (Zyrtec) 10 mg PO DAILY PRN allergy 11/14/23 symptoms 30 days #30 caps clonidine HCl 0.1 mg tablet 0.1 mg PO BID PRN anxiety 30 days 11/14/23 #60 tabs dextroamphetamine-amphetamine ER 30 mg PO DAILY 30 days #30 caps 11/14/23 30 mg 24hr capsule,extend release fluvoxamine 100 mg 100 mg PO BEDTIME 30 days #30 caps 11/14/23 capsule,extended release 24 hr lidocaine 4 % topical patch 1 patch transdermal DAILY PRN 11/14/23 (Lidocaine Pain Relief) lower back pain 30 days #30 ea lisinopril 5 mg tablet 5 mg PO DAILY 30 days #30 tabs 11/14/23 trazodone 50 mg tablet 50 mg PO BEDTIME 30 days #30 tabs 11/14/23 DS: Summary Time Spent with Patient Time attestation: Total time managing care of this patient today ____ minutes. Discharge Plan Discharge Anticipated Discharge Date/Time: 11/14/23 15:00 Patient Disposition: Longterm Discharge Diagnosis: MDD, recurrent, moderate Referrals: department of mental health [Other] - 1 Week (Referral to the Department of Mental Health Patient should follow-up with agency after discharge ) [facility] [Other] - 11/14/23 3:00 pm (Patient accepted for Longterm placement ) [facility] Therapy [Other] - 1 Week (Hospital Discharge Appointment for Therapy) [facility] ([facility]): Psychiatry [Other] - 1 Week (Hospital Discharge Appointment for psychiatric medication management ) Gamaliel Manning MD [Physician] - 12/05/23 2:00 pm (in office) Discharge Medications: New lisinopril 5 mg Tablet 5 mg PO DAILY 30 Days Qty: 30 1RF Protocol: Hold for SBP< HOLD for SBP < : 90 dextroamphetamine-amphetamine 30 mg capsule,extended release 24hr 30 mg PO DAILY 30 Days Qty: 30 0RF Rx Instructions: Partial Fill upon patient request. trazodone 50 mg Tablet 50 mg PO BEDTIME 30 Days Qty: 30 1RF lidocaine [Lidocaine Pain Relief] 4 % Adhesive Patch,Medicated 1 patch transdermal DAILY PRN (Reason: lower back pain) 30 Days Qty: 30 1RF Protocol: Apply to: Apply to: lower back Patient Own Medication 1 ea PO DAILY Qty: 0 0RF Zyrtec 10 mg capsule 10 mg PO DAILY PRN (Reason: allergy symptoms) 30 Days Qty: 30 1RF Continued clonidine HCl 0.1 mg tablet 0.1 mg PO BID PRN (Reason: anxiety) 30 Days Qty: 60 1RF bupropion HCl 300 mg tablet extended release 24 hr 300 mg PO DAILY 30 Days Qty: 30 1RF Changed fluvoxamine 100 mg capsule,extended release 24hr 100 mg PO BEDTIME 30 Days Qty: 30 1RF Discontinued quetiapine 25 mg tablet 25 mg PO BEDTIME Discharge Orders: Discharge Order (Routine); Ordered 11/14/23 Ordered By: Juan Loyd Diet: Regular diet Activity on Discharge: As tolerated Stand Alone Forms: Patient Portal Discharge page Print Language: Moroccan Care Plan Goals: Maintain mood and safe behaviors Take medications as prescribed Practice coping skills Continue with outpatient providers and reach out to them as needed Health Concerns: Mood stability and behaviors High Blood pressure Chronic lower back pain Plan of Treatment: Follow up with your PCP, psychiatric provider and other outpatient providers regarding above concerns Take medications as prescribed Assessment: Risk assessment at time of discharge:? Patient was interviewed prior to discharge and found to be fully oriented and without any SI or HI. Patient has improved insight and judgment and wants to continue treatment. Patient is not in imminent risk of harm to self or others and has a safety plan that includes presenting to the closest ER or calling 911 if feeling unsafe.? Patient has been observed closely by nursing and unit staff throughout admission; patient has not engaged in any behaviors that suggest dangerousness to self or others and has demonstrated appropriate behaviors and impulse control
[2023-11-14 13:53] VITALS: BP 168/83; PULSE 89; RESP 18
[2023-11-14] MEDS: cloNIDine HCL 0.1 MG TABLET PO (13:54)
[2023-11-14] MEDS: traZODone HCL 50 MG TABLET PO (21:14)
[2023-11-14] MEDS: fluvoxaMINE Maleate 50 MG TABLET 100 MG PO (21:14)
[2023-11-14 22:00] VITALS: BP 148/77; PULSE 82; RESP 18; TEMP 36.4; O2SAT 100
[2023-11-15 09:00] VITALS: BP 106/63; PULSE 71; RESP 16; TEMP 36.6; O2SAT 100
[2023-11-15] MEDS: lisinopriL 5 MG TABLET PO (09:04)
[2023-11-15] MEDS: buPROPion HCl XL 300 MG TAB.ER.24H PO (09:04)
[2023-11-15] MEDS: Acetaminophen 325 MG TABLET 650 MG PO ×2 (09:17→20:59)
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
[2023-11-15 20:37] VITALS: BP 142/63; PULSE 76; RESP 16; TEMP 36.4; O2SAT 99
[2023-11-15] MEDS: traZODone HCL 50 MG TABLET PO ×2 (20:51→20:52)
[2023-11-15] MEDS: fluvoxaMINE Maleate 50 MG TABLET 100 MG PO (20:51)
[2023-11-16 08:15] VITALS: BP 131/62; PULSE 73; RESP 15; TEMP 36.9; O2SAT 97
[2023-11-16 08:49] VITALS: BP 131/62
[2023-11-16] MEDS: buPROPion HCl XL 300 MG TAB.ER.24H PO (08:49)
[2023-11-16] MEDS: lisinopriL 5 MG TABLET PO (08:49)
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
== END 2023-11-16 12:25 | disposition home or self-care (01) | DRG 751 ==
LOC: HO.ED 11-02 06:52 → HO.PM5 11-02 13:19
PROVIDERS: Physician Assistant Medical; Admitting Provider Clinical Nurse Specialist Psychiatric/Mental Health, Adult; Emergency Provider Emergency Medicine Emergency Medical Services; Visit Provider Psychiatry & Neurology Psychiatry
DX: F33.2 Major depressive disorder, recurrent severe without psychotic features (principal); R45.851 Suicidal ideations; Z91.148 Patient's other noncompliance with medication regimen for other reason; F42.8 Other obsessive-compulsive disorder; F42.3 Hoarding disorder; I10 Essential (primary) hypertension; F63.89 Other impulse disorders; Z63.4 Disappearance and death of family member; Z56.0 Unemployment, unspecified; Z62.811 Personal history of psychological abuse in childhood; Z59.811 Housing instability, housed, with risk of homelessness; Z79.899 Other long term (current) drug therapy
CPT/HCPCS: 36415; 80053; 80061; 80179; 80307; 81001; 82607; 82746; 83036; 83690; 83735; 84439; 84443; 85025; 93005; 99285; S9485

== ENCOUNTER → 2023-11-02 07:46 | Outpatient (BNV) | payer OTHER, SELFPAY | PROVIDERS: Admitting Provider Clinical Nurse Specialist Psychiatric/Mental Health, Adult; Emergency Provider Emergency Medicine Emergency Medical Services; Visit Provider Internal Medicine | DX: I45.81 Long QT syndrome (principal) | CPT/HCPCS: 93010 ==

== ENCOUNTER → 2023-11-02 12:06 | Outpatient (BNV) | payer OTHER, SELFPAY | PROVIDERS: Admitting Provider Clinical Nurse Specialist Psychiatric/Mental Health, Adult; Emergency Provider Emergency Medicine Emergency Medical Services; Visit Provider Psychiatry & Neurology Psychiatry | DX: F33.2 Major depressive disorder, recurrent severe without psychotic features (principal); F42.3 Hoarding disorder; F42.8 Other obsessive-compulsive disorder | CPT/HCPCS: 99231; 99232 ==